=== PATIENT | male | born 1980 | race Caucasian/White ===

== ENCOUNTER 2016-10-03 19:34 | Emergency (ER) | payer MEDICARE, OTHER ==
[2016-10-03 19:40] VITALS: BP 139/82; PULSE 84; RESP 18; TEMP 98
--- NOTE | 2016-10-03 20:05 | ED ---
General Adult HPI - General Chief complaint: Head Injury Stated complaint: Tree fell /Head Injury Time Seen by Provider: 10/03/16 19:45 Source: patient, RN notes reviewed Mode of arrival: ambulatory Limitations: no limitations - History of Present Illness Initial comments: Chief complaint and history of present illness a 35-year-old male reports today is helping a friend take a tree down. Limb fell hitting on the top of the head. He said he felt [place] did not get knocked out or knocked down. Nausea but no vomiting. Complains discomfort to the top of his head and right side of his neck. The patient had a [place] collar placed and came to the emergency room. - Related Data Home Medications Medication Instructions Recorded Confirmed Nebivolol [Bystolic] 5 mg PO QAM 05/12/15 10/03/16 Fluticasone/Vilanterol [Breo 1 inhalation PO QAM 08/13/15 10/03/16 Ellipta 100-25 Mcg Iinhaler] HYDROcodone/APAP 10-325MG [[place] 1 tab PO TID PRN 08/13/15 10/03/16 10-325] Ibuprofen [Motrin] 800 mg PO DIRECTED PRN 08/13/15 10/03/16 Topiramate 50 mg PO DAILY 08/13/15 10/03/16 Previous Rx's Medication Instructions Recorded Orphenadrine [Norflex] 100 mg PO Q12H #10 tablet.er 10/03/16 methylPREDNISolone Dose Pack 4 mg PO DIRECTED #21 package 10/03/16 [Medrol Dose Pack] Allergies Allergy/AdvReac Type Severity Reaction Status Date / Time No Known Allergies Allergy Verified 10/03/16 19:40 Review of Systems ROS Statement: Those systems with pertinent positive or pertinent negative responses have been documented in the HPI. Review of systems. Mild headache and discomfort to the right side of the neck. No change in visual acuity no chest pain shows breath GI/ problems no neuro deficits. All systems are reviewed. Past medical problems significant for chronic back pain for which she takes [place]. He also has a history of hypertension. The patient's surgeries include appendectomy and gallbladder as well as surgery tendon of his big toe left side. Family history significant for grandparents with cancer of unknown type. Patient reports that his father has diabetes mellitus. Patient denies any ALLERGIES, he does smoke, was strongly encouraged to stop. He uses alcohol socially. ROS Other: All systems not noted in ROS Statement are negative. Past Medical History Additional Past Medical History / Comment(s): back pain History of Any Multi-Drug Resistant Organisms: None Reported Past Surgical History: No Surgical Hx Reported Past Psychological History: No Psychological Hx Reported Smoking Status: Current every day smoker Past Alcohol Use History: Occasional Past Drug Use History: None Reported General Exam - General Exam Comments Initial Comments: General: The patient is awake and alert, complains of pain to the top of his head were limb hit him. Also complains neck discomfort. Vital signs show temperature 98.0 pulse 84 respiratory rate 18 pulse ox 97% room air blood pressure 139/82. Elevated systolic noted. The patient is comfortable Eye: Pupils are equal, round and reactive to light, extra-ocular movements are intact ; there is normal conjunctiva bilaterally. No signs of icterus. Ears, nose, mouth and throat: There are moist mucous membranes and no oral lesions. Neck: Patient was placed in a [place] collar upon arrival to emergency room. He does have discomfort to the middle of his neck he does report there is some discomfort that radiates down to the right shoulder. The tree did not hit his right shoulder. He does have a small bruise on the top of his head. Cardiovascular: There is a regular rate and rhythm. No murmur, rub or gallop is appreciated. Respiratory: Lungs are clear to auscultation, respirations are non-labored, breath sounds are equal. No wheezes, stridor, rales, or rhonchi. Gastrointestinal: Soft, non-distended, non-tender abdomen without masses or organomegaly noted. There is no rebound or guarding present. No CVA tenderness. Bowel sounds are unremarkable. Back: There is no tenderness to palpation in the midline. There is no obvious deformity. No rashes noted. Musculoskeletal: Mild discomfort to the right side of his neck going into the right shoulder. Full range of motion. Neurovascular status to the hand on the right side and left side intact. Neurological: CN II-XII intact, There are no obvious motor or sensory deficits. Coordination appears grossly intact. Speech is normal. No focal or lateralizing findings. No drift noted on exam neuro exam Skin: Skin is warm and dry and no rashes or lesions are noted. Limitations: no limitations Course Vital Signs 10/03/16 19:38 Temperature 98.0 F Pulse Rate 84 Respiratory 18 Rate Blood Pressure 139/82 O2 Sat by Pulse 97 Oximetry Medical Decision Making - Medical Decision Making Medical decision making; patient had a CAT scan of the brain and cervical spine ; radiologist final impression is normal CT of the brain, negative CT of the cervical spine. As read by Dr. Palmer At this time the patient be placed on a Medrol Dosepak for muscle relaxation, advised to continue with his pain medication and ibuprofen as needed. As well as muscle relaxant. Advised to follow-up with family physician. Use ice to any areas that are uncomfortable for the next 24 hours and then warm compresses after that. Was advised to report any numbness tingling changes to his family doctor. He may need further evaluation such as no MRI if he develops disc type problems. Disposition Clinical Impression: Closed head injury, Contusion of scalp, Cervical strain, acute Disposition: HOME SELF-CARE Condition: Stable Instructions: Concussion (ED), Cervical Strain (ED) Additional Instructions: Apply ice to area discomfort tonight and then heat tomorrow. Use medications provided for muscle relaxation and pain management. Follow-up with your family doctor. Prescriptions: Orphenadrine [Norflex] 100 mg PO Q12H #10 tablet.er methylPREDNISolone Dose Pack [Medrol Dose Pack] 4 mg PO DIRECTED #21 package Time of Disposition: 20:51
--- NOTE | 2016-10-03 20:31 | CT ---
EXAMINATION TYPE: CT brain atilioine wo con DATE OF EXAM: 10/03/2016 8:22 PM COMPARISON: 03/16/2015 CT brain HISTORY: Superior injury today without loss of consciousness. CT DLP: 1517.8 mGycm Automated exposure control for dose reduction was used. TECHNIQUE: CT scan of the head and cervical spine are performed without contrast. FINDINGS: The ventricles and sulci appear normal. There is no mass effect nor midline shift. There is no sign of intracranial hemorrhage. Calvarium is intact. Cervical vertebra have normal spacing and alignment. Posterior elements are intact. Facet joints are intact. Skull base is intact. There is no sign of a fracture. IMPRESSION: Normal CT scan of the brain. Negative CT scan of the cervical spine.
[2016-10-03] MEDS ORDERED: predniSONE 20 MG TAB PO STA (20:43)
== END 2016-10-03 20:57 | disposition home or self-care (01) ==
LOC: EC 19:34
DX: S16.1XXA Strain of muscle, fascia and tendon at neck level, initial encounter (principal); S00.03XA Contusion of scalp, initial encounter; F17.200 Nicotine dependence, unspecified, uncomplicated; Z79.899 Other long term (current) drug therapy; Z79.51 Long term (current) use of inhaled steroids; W20.8XXA Other cause of strike by thrown, projected or falling object, initial encounter; Y93.89 Activity, other specified
CPT/HCPCS: 99283; 72125; 70450; J7512

== ENCOUNTER → 2017-11-12 | Outpatient (CLI) | payer MEDICARE, OTHER ==
--- NOTE | 2017-11-13 08:53 | MR ---
EXAMINATION TYPE: MR lumbar spine wo con DATE OF EXAM: 11/12/2017 COMPARISON: 11/15/2009 images. Report is unavailable. HISTORY: Lumbar pain, Disc degeneration TECHNIQUE: Multiplanar, multisequence images of the lumbar spine were acquired. The patient did not complete lavell or laboratory workup and therefore requested to complete the examination without contrast. FINDINGS: The lumbar bodies maintain normal vertebral body height and alignment. Bone marrow signal i s within normal limits. Multilevel disc desiccation is seen. Conus medullaris is unremarkable termina ting at T12-L1. L1-L2: Normal disc appearance without desiccation. No herniation, protrusion or disc bulging. No ca nal stenosis is present. Foramina are patent bilaterally. L2-L3: There is a very small broad-based disc bulge is there is flattening in the usual disc concavit y. No significant spinal canal stenosis or neural foraminal narrowing. L3-L4: There is a small broad-based disc bulge without spinal canal stenosis or neural foraminal narr owing. Minimal facet arthropathy is seen at this level. L4-L5: There is a very small central disc herniation and annular tear superimposed upon a broad-based disc bulge. Facet arthropathy is very mild. No significant spinal canal stenosis or neural foraminal narrowing. L5-S1: There is a small broad-based disc bulge without spinal canal stenosis or neural foraminal narr owing. Minimal facet arthropathy. IMPRESSION: 1. Very small central disc herniation with annular tear at L4-L5 without spinal canal stenosis or rand ral foraminal narrowing. 2. Degenerative disc disease from L2 through S1 without spinal canal stenosis.
== END | disposition home or self-care (01) ==
LOC: RADMRIMAIN 11:19
PROVIDERS: ATTEND Family Medicine
DX: M51.26 Other intervertebral disc displacement, lumbar region (principal); M51.37 Other intervertebral disc degeneration, lumbosacral region
CPT/HCPCS: 72148

== ENCOUNTER 2018-01-08 12:17 | Emergency (ER) | payer MEDICARE, OTHER ==
[2018-01-08] MEDS ORDERED: ONDANSETRON 4 MG/2 ML VIAL IVP STA (13:55)
[2018-01-08] MEDS ORDERED: PANTOPRAZOLE 40 MG/10 ML VIAL IVP STA (13:55)
[2018-01-08] MEDS ORDERED: SODIUM CHLORIDE 0.9% 1,000 ML IV STA (13:55)
[2018-01-08] MEDS ORDERED: KETOROLAC 30 MG/ML 1 ML VIAL IVP STA (13:55)
[2018-01-08] MEDS ORDERED: MAG HYDROX/AL HYDROX/SIMETH 30 ML, HYOSCYAMINE ELIXIR 10 ML, CIMETIDINE HCL 300 MG, LID... PO STA ×4 (13:56)
[2018-01-08 14:12] LABS: Basophils % (A) 0 %; Eosinophils # (A) 0.2 k/uL (0-0.7); Eosinophils % (A) 3 %; HCT 50.2 % (39.0-53.0); HGB 17.2 gm/dL (13.0-17.5); Lymphocytes # (A) 1.5 k/uL (1.0-4.8); Lymphocytes % (A) 19 %; MCH 31.1 pg (25.0-35.0); MCHC 34.3 g/dL (31.0-37.0); MCV 90.6 fL (80.0-100.0); Mean Platelet Volume 7.2; Monocytes # (A) 0.4 k/uL (0-1.0); Monocytes % (A) 5 %; Neutrophils # (A) 5.8 k/uL (1.3-7.7); Neutrophils % (A) 72 %; Platelet Count 228 k/uL (150-450); RBC 5.55 m/uL (4.30-5.90); RDW 13.2 % (11.5-15.5); WBC 8.1 k/uL (3.8-10.6)
[2018-01-08 14:21] LABS: INR 1.1 (<1.2); Partial Thromboplastin Time 25.7 sec (22.0-30.0); Prothrombin Time 10.3 sec (9.0-12.0)
[2018-01-08 14:22] LABS: ALT 36 U/L (21-72); AST 31 U/L (17-59); Albumin 4.2 g/dL (3.5-5.0); Alkaline Phosphatase 54 U/L (38-126); Amylase 48 U/L (30-110); Anion Gap 11 mmol/L; Blood Urea Nitrogen 14 mg/dL (9-20); Calcium 9.6 mg/dL (8.4-10.2); Carbon Dioxide 23 mmol/L (22-30); Chloride 106 mmol/L (98-107); Glucose 89 mg/dL (74-99); Lipase 68 U/L (23-300); Potassium 4.4 mmol/L (3.5-5.1); Sodium 140 mmol/L (137-145); Total Protein 6.8 g/dL (6.3-8.2)
--- NOTE | 2018-01-08 14:22 | ED ---
Chest Pain HPI <Ayo Daniels - Last Filed: 01/08/18 16:41> - General Source: patient, RN notes reviewed, old records reviewed Mode of arrival: wheelchair Limitations: no limitations <Anita Trinidad - Last Filed: 01/08/18 16:51> - General Chief Complaint: Chest Pain Stated Complaint: Chest pain Time Seen by Provider: 01/08/18 13:24 - History of Present Illness Initial Comments: 37-year-old male chief complaint chest pain this morning. He states it seems to be also causing some epigastric abdominal pain. This pain stopped and then recurred again 9 AM. Patient has no cardiac history. Does have history of hypertension is a smoker. Denies any fever or chills. Also reports a sore throat. She reports pain with taking a deep breath. (Anita Trinidad) - Related Data Home Medications Medication Instructions Recorded Confirmed Nebivolol [Bystolic] 5 mg PO QAM 05/12/15 01/08/18 Fluticasone/Vilanterol [Breo 1 puff INHALATION RT-DAILY 08/13/15 01/08/18 Ellipta 100-25 Mcg Iinhaler] HYDROcodone/APAP 10-325MG [[place] 1 tab PO TID PRN 08/13/15 01/08/18 10-325] Montelukast [Singulair] 10 mg PO DAILY 01/08/18 01/08/18 Previous Rx's Medication Instructions Recorded methylPREDNISolone Dose Pack 4 mg PO DIRECTED #21 package 01/08/18 [Medrol Dose Pack] Allergies Allergy/AdvReac Type Severity Reaction Status Date / Time No Known Allergies Allergy Verified 01/08/18 13:47 Review of Systems ROS Other: All systems not noted in ROS Statement are negative. <Ayo Daniels - Last Filed: 01/08/18 16:41> ROS Other: All systems not noted in ROS Statement are negative. <Anita Trinidad - Last Filed: 01/08/18 16:51> ROS Statement: Those systems with pertinent positive or pertinent negative responses have been documented in the HPI. EKG Findings - EKG Comments: EKG Findings:: EKG shows normal sinus rhythm with sinus arrhythmia. Left axis deviation. Ventricular rate 60 beats were improved. Vitals 140 ms. QRS duration is 96 most seconds. QTc is 368/391 ms. <Anita Trinidad - Last Filed: 01/08/18 16:51> Past Medical History Past Medical History: Hypertension Additional Past Medical History / Comment(s): back pain History of Any Multi-Drug Resistant Organisms: None Reported Past Surgical History: Appendectomy, Cholecystectomy, Hernia Repair Additional Past Surgical History / Comment(s): left great toe Past Psychological History: No Psychological Hx Reported Smoking Status: Current every day smoker Past Alcohol Use History: Occasional Past Drug Use History: None Reported <Anita Trinidad - Last Filed: 01/08/18 16:51> General Exam <Ayo Daniels - Last Filed: 01/08/18 16:41> Limitations: no limitations Head exam: Present: atraumatic, normocephalic, normal inspection Eye exam: Present: normal appearance, PERRL, EOMI. Absent: scleral icterus, conjunctival injection, periorbital swelling ENT exam: Present: normal exam, mucous membranes moist Neck exam: Present: normal inspection. Absent: tenderness, meningismus, lymphadenopathy Respiratory exam: Present: normal lung sounds bilaterally. Absent: respiratory distress, wheezes, rales, rhonchi, stridor Cardiovascular Exam: Present: regular rate, normal rhythm, normal heart sounds. Absent: systolic murmur, diastolic murmur, rubs, gallop, clicks GI/Abdominal exam: Present: soft, normal bowel sounds. Absent: distended, tenderness, guarding, rebound, rigid Extremities exam: Present: normal inspection, full ROM, normal capillary refill. Absent: tenderness, pedal edema, joint swelling, calf tenderness Back exam: Present: normal inspection Neurological exam: Present: alert, oriented X3, CN II-XII intact Psychiatric exam: Present: normal affect, normal mood <AmosAnita - Last Filed: 01/08/18 16:51> - General Exam Comments Initial Comments: Patient 37-year-old male. Alert and oriented. No significant distress. 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 This happened several 6 months ago. He did see his family doctor afterwards. Today 's EKG was normal. Labs normal. The patient reports that with a deep breath he can reproduce the pain. Lungs are clear to auscultation the patient denies any injury. We did discuss costochondritis, pleuritic pain. And cardiac issues. The plan the patient is comfortable going home following up with family physician. If the pain were to persist is to return emergency room. He does report that the initial pain was at 3 AM. 12 hours ago on by since the patient had his cardiac panel and troponin drawn. Troponin is normal. The patient replaced on Medrol Dosepak. Advised to use ibuprofen. advised return emergency room if there are any changes. Dr. Daniels (Ayo Daniels) Nonspecific abdomen. Correlate for ileus or enteritis. Chest x-rays negative for any acute process. (Anita Trinidad) Disposition <Ayo Daniels - Last Filed: 01/08/18 16:41> Is patient prescribed a controlled substance at d/c from ED?: No When asked, does pt state using other controlled substances?: No If prescribed controlled substance>3 days was MAPS reviewed?: No If opioid is for acute pain is fill amount 7 days or less?: No If Rx opioid, was Start Talking consent form obtained?: No Time of Disposition: 16:50 <Anita Trinidad - Last Filed: 01/08/18 16:51> Clinical Impression: Chest pain Disposition: HOME SELF-CARE Condition: Good Instructions: Costochondritis (ED), Chest Pain (ED) Additional Instructions: He should take Motrin and use the steroids as prescribed for the chest pain. Have close up with primary care provider. Return to emergency department if any alarming signs or symptoms occur. Prescriptions: methylPREDNISolone Dose Pack [Medrol Dose Pack] 4 mg PO DIRECTED #21 package Referrals: Stefano Cano MD [Primary Care Provider] - 1-2 days
--- NOTE | 2018-01-08 14:30 | XR ---
EXAMINATION TYPE: XR chest 2V DATE OF EXAM: 01/08/2018 COMPARISON: 11/01/2011 TECHNIQUE: PA and lateral views submitted. HISTORY: Chest pain FINDINGS: The lungs are clear and there is no pneumothorax, pleural effusion, or focal pneumonia. Hypertrophic change of the spine. No overt failure. Biapical pleural thickening. IMPRESSION: 1. No acute process.
[2018-01-08 14:31] LABS: Creatine Kinase 218 U/L (55-170)
--- NOTE | 2018-01-08 14:31 | XR ---
EXAMINATION TYPE: XR KUB DATE OF EXAM: 01/08/2018 COMPARISON: NONE HISTORY: Pain TECHNIQUE: One view abdominal series FINDINGS: The osseous structures are intact. The bowel gas pattern is nonspecific. Lung bases are clear. Surg ical clips in the abdomen. There is air throughout small bowel loops in a nonspecific pattern. Curvat ure the spine noted. IMPRESSION: 1. Nonspecific abdomen. Correlate for an ileus or enteritis.
[2018-01-08 14:44] LABS: Troponin I <0.012 ng/mL (0.000-0.034)
[2018-01-08 14:46] LABS: Creatine Kinase MB 2.8 ng/mL (0.0-2.4)
[2018-01-08 16:04] VITALS: RESP 16
[2018-01-08 16:53] LABS: Amorphous Sediment,Urine Rare /hpf; Appearance,Urine Clear (Clear); Bilirubin,Urine Negative (Negative); Blood,Urine Negative (Negative); Color,Urine Yellow; Glucose,Urine (UA) Negative (Negative); Ketones,Urine Negative (Negative); Leukocyte Esterase,Urine Small (Negative); Mucus,Urine Occasional /hpf; Nitrite,Urine Negative (Negative); PH, Urine 6.5 (5.0-8.0); Protein,Urine Negative (Negative); RBC,Urine 1 /hpf (0-5); Specific Gravity,Urine 1.015 (1.001-1.035); Urobilinogen,Urine <2.0 mg/dL (<2.0); WBC,Urine 1 /hpf (0-5)
[2018-01-08 17:00] VITALS: BP 115/78; PULSE 62; TEMP 97.9
== END 2018-01-08 17:00 | disposition home or self-care (01) ==
LOC: EC 12:17
DX: R07.81 Pleurodynia (principal); R10.13 Epigastric pain; J02.9 Acute pharyngitis, unspecified; I10 Essential (primary) hypertension; F17.200 Nicotine dependence, unspecified, uncomplicated; Z79.51 Long term (current) use of inhaled steroids; Z79.899 Other long term (current) drug therapy
CPT/HCPCS: 36415; 93005; 85379; 80053; 82150; 82550; 82553; 83690; 84484; 85025; 85610; 85730; 81001; 87081; 87430; 71046; 74018; 99285; 96374; 96375 ×2; 96361; J2405; J1885; C9113

== ENCOUNTER → 2018-04-08 | Outpatient (CLI) | payer MEDICARE, OTHER ==
[2018-04-08 14:31] LABS: Basophils % (A) 0 %; Eosinophils # (A) 0.2 k/uL (0-0.7); Eosinophils % (A) 2 %; HCT 50.6 % (39.0-53.0); HGB 16.7 gm/dL (13.0-17.5); Lymphocytes # (A) 1.7 k/uL (1.0-4.8); Lymphocytes % (A) 16 %; MCH 31.6 pg (25.0-35.0); MCHC 33.1 g/dL (31.0-37.0); MCV 95.6 fL (80.0-100.0); Mean Platelet Volume 7.2; Monocytes # (A) 0.5 k/uL (0-1.0); Monocytes % (A) 5 %; Neutrophils # (A) 7.9 k/uL (1.3-7.7); Neutrophils % (A) 77 %; Platelet Count 259 k/uL (150-450); RBC 5.29 m/uL (4.30-5.90); RDW 13.1 % (11.5-15.5); WBC 10.3 k/uL (3.8-10.6)
[2018-04-08 14:56] LABS: C Reactive Protein <5.0 mg/L (<10.0); Uric Acid 5.1 mg/dL (3.5-8.5)
[2018-04-08 15:29] LABS: Erythrocyte Sedimentation Rate 2 mm/hr (0-15)
[2018-04-08 20:43] LABS: Cyclic Citrullinated Pep IgG NEGATIVE (NEGATIVE)
== END ==
LOC: LABWHC1 13:37
PROVIDERS: ATTEND Podiatrist Foot & Ankle Surgery
DX: B99.9 Unspecified infectious disease (principal); M19.90 Unspecified osteoarthritis, unspecified site
CPT/HCPCS: 36415; 84550; 85025; 85652; 86038; 86140; 86200

== ENCOUNTER 2018-07-09 20:03 | Emergency (ER) | payer MEDICARE, OTHER ==
[2018-07-09] MEDS ORDERED: KETOROLAC 30 MG/ML 1 ML VIAL IVP STA (20:38)
--- NOTE | 2018-07-09 20:39 | ED ---
General Adult HPI - General Chief complaint: Chest Pain Stated complaint: chest pain Source: patient Mode of arrival: ambulatory Limitations: no limitations - History of Present Illness Initial comments: Dictation was produced using [employer] dictation software. please excuse any grammatical, word or spelling errors. Chief Complaint: 37-year-old male past medical history of hypertension and COPD History of Present Illness: Is as her chest pain. Patient reports that his pain started today. He reports that is sharp and located to the left lateral thorax. Reports that is worse with deep inspiration and abduction of his left upper extremity. He also does feel some symptoms when he bends forward. Patient denies any history of cardiac disease. She does have some risk factors including tobacco use and hypertension. Patient denies any cough, fever or chills. The lower extremity symptoms or history of pulmonary embolus. The ROS documented in this emergency department record has been reviewed and confirmed by me. Those systems with pertinent positive or negative responses have been documented in the HPI. All other systems are other negative and/or noncontributory. - Related Data Home Medications Medication Instructions Recorded Confirmed Nebivolol [Bystolic] 5 mg PO QAM 05/12/15 07/09/18 Fluticasone/Vilanterol [[place] 1 puff INHALATION RT-DAILY 08/13/15 07/09/18 Ellipta 100-25 Mcg Iinhaler] HYDROcodone/APAP 10-325MG [[place] 1 tab PO TID PRN 08/13/15 07/09/18 10-325] Ibuprofen [Motrin] 800 mg PO DAILY PRN 07/09/18 07/09/18 Allergies Allergy/AdvReac Type Severity Reaction Status Date / Time No Known Allergies Allergy Verified 07/09/18 20:27 Review of Systems ROS Statement: Those systems with pertinent positive or pertinent negative responses have been documented in the HPI. ROS Other: All systems not noted in ROS Statement are negative. Past Medical History Past Medical History: Hypertension Additional Past Medical History / Comment(s): back pain History of Any Multi-Drug Resistant Organisms: None Reported Past Surgical History: Appendectomy, Cholecystectomy, Hernia Repair Additional Past Surgical History / Comment(s): left great toe Past Psychological History: No Psychological Hx Reported Smoking Status: Current every day smoker Past Alcohol Use History: Occasional Past Drug Use History: None Reported General Exam - General Exam Comments Initial Comments: PHYSICAL EXAM: General Impression: Alert and oriented x3, not in acute distress HEENT: Normocephalic atraumatic, extra-ocular movements intact, pupils equal and reactive to light bilaterally, mucous membranes moist. Cardiovascular: Heart regular rate and rhythm, S1&S2 audible, no murmurs, rubs or gallops Chest: Lungs clear to auscultation bilaterally, no rhonchi, no wheeze, no rales , reproducible chest pain with manipulation of left upper extremity Abdomen: Bowel sounds present, abdomen soft, non-tender, non-distended, no organomegaly Musculoskeletal: Pulses present and equal in all extremities, no peripheral edema Motor: Power 5/5 bilaterally, no focal deficits noted Neurological: CN II-XII grossly intact, no focal motor or sensory deficits noted Skin: Intact with no visualized rashes Psych: Normal affect and mood Limitations: no limitations Course Vital Signs 07/09/18 20:04 Temperature 97.9 F Pulse Rate 71 Respiratory 16 Rate Blood Pressure 132/82 O2 Sat by Pulse 99 Oximetry Medical Decision Making - Medical Decision Making ED course: 37-year-old male presents with atypical chest pain. Vital signs upon arrival are within acceptable limits. EKGs benign. Chest x-rays obtained showing no acute processes. She does not have any high-risk features and his clinical presentation. Given IV Toradol. Patient be discharged. Told to take [id number] analgesics for his pain symptoms. Patient understandable agreeable to plan. return any worsening condition. Otherwise advised follow-up with primary care physician upon discharge. EKG Interpretation: A 12 lead EKG was obtained. It was interpreted by myself and attending physician. There is a P wave before every QRS complex. Rate is no sinus rhythm, CT interval 144, heart rate of 64, QRS 94, QTC 33. Rhythm is [default value]. QT is not prolonged. No ST segment depression or elevation. . Overall, this EKG is unremarkable Disposition Clinical Impression: Strain of chest wall Disposition: HOME SELF-CARE Condition: Good Instructions: Chest Pain (ED) Is patient prescribed a controlled substance at d/c from ED?: No Referrals: Stefano Cano MD [Primary Care Provider] - 1-2 days Time of Disposition: 21:05
--- NOTE | 2018-07-09 20:46 | XR ---
EXAMINATION TYPE: XR chest 2V DATE OF EXAM: 07/09/2018 COMPARISON: 01/08/2018 HISTORY: Chest pain TECHNIQUE: Frontal and lateral views of the chest are obtained. FINDINGS: Heart and mediastinum are normal. Lungs are clear. Diaphragm is normal. There are chest le ads. Bony thorax appears normal. IMPRESSION: Normal chest. No change.
[2018-07-09 21:22] VITALS: BP 127/78; PULSE 66; RESP 18; TEMP 98.1
== END 2018-07-09 21:20 | disposition home or self-care (01) ==
LOC: EC 20:03
DX: S29.001A Unspecified injury of muscle and tendon of front wall of thorax, initial encounter (principal); I10 Essential (primary) hypertension; J44.9 Chronic obstructive pulmonary disease, unspecified; F17.200 Nicotine dependence, unspecified, uncomplicated; Z79.51 Long term (current) use of inhaled steroids; Z79.899 Other long term (current) drug therapy; X58.XXXA Exposure to other specified factors, initial encounter
CPT/HCPCS: 99283; 96374; 93005; 71046; J1885

== ENCOUNTER 2019-02-14 08:58 | Inpatient (IN) | payer MEDICARE, OTHER ==
[2019-02-14] MEDS ORDERED: SODIUM CHLORIDE 0.9% 1,000 ML IV STA (09:21)
--- NOTE | 2019-02-14 09:42 | ED ---
Abdominal Pain HPI - General Chief Complaint: Abdominal Pain Stated Complaint: abdominal pain Time Seen by Provider: 02/14/19 09:21 Source: patient, RN notes reviewed Mode of arrival: ambulatory Limitations: no limitations - History of Present Illness Initial Comments: This a 38-year-old male presents emergency Department chief complaint abdominal pain. Patient states he's had worsening abdominal pain last few days. Patient states his appointment with unbearable. Patient states that he has had chronic abdominal issues in which she is scheduled for colonoscopy by Dr. Lyon. Patient did feel years ago he had a hiatal hernia repair by Dr. Lyon. Patient states that he did have some recent diarrhea states it was green in nature. Denies any hematochezia. Patient denies any hematemesis coffee-ground emesis no current nausea vomiting. Patient states that certain foods to make the symptoms worse. Patient went of diffuse abdominal burning. Patient was given Bentyl by primary care physician with no improvement of symptoms. - Related Data Home Medications Medication Instructions Recorded Confirmed Nebivolol [Bystolic] 5 mg PO QAM 05/12/15 02/14/19 Fluticasone/Vilanterol [Breo 1 puff INHALATION RT-DAILY 08/13/15 02/14/19 Ellipta 100-25 Mcg Iinhaler] HYDROcodone/APAP 10-325MG [[place] 1 tab PO TID PRN 08/13/15 02/14/19 10-325] Ibuprofen [Motrin] 800 mg PO DAILY PRN 07/09/18 02/14/19 Dicyclomine HCl 10 mg PO TID 02/14/19 02/14/19 Allergies Allergy/AdvReac Type Severity Reaction Status Date / Time No Known Allergies Allergy Verified 02/14/19 09:20 Review of Systems ROS Statement: Those systems with pertinent positive or pertinent negative responses have been documented in the HPI. ROS Other: All systems not noted in ROS Statement are negative. Past Medical History Past Medical History: Hypertension Additional Past Medical History / Comment(s): back pain History of Any Multi-Drug Resistant Organisms: None Reported Past Surgical History: Appendectomy, Cholecystectomy, Hernia Repair Additional Past Surgical History / Comment(s): left great toe Past Psychological History: No Psychological Hx Reported Smoking Status: Current every day smoker Past Alcohol Use History: Occasional Past Drug Use History: None Reported General Exam Limitations: no limitations General appearance: alert, in no apparent distress Head exam: Present: atraumatic, normocephalic, normal inspection Eye exam: Present: normal appearance, PERRL, EOMI. Absent: scleral icterus, conjunctival injection, periorbital swelling ENT exam: Present: normal exam, normal oropharynx, mucous membranes moist Neck exam: Present: normal inspection, full ROM. Absent: tenderness, meningismus, lymphadenopathy Respiratory exam: Present: normal lung sounds bilaterally. Absent: respiratory distress, wheezes, rales, rhonchi, stridor Cardiovascular Exam: Present: regular rate, normal rhythm, normal heart sounds. Absent: systolic murmur, diastolic murmur, rubs, gallop, clicks GI/Abdominal exam: Present: soft, tenderness (Mild to moderate diffuse abdominal tenderness), normal bowel sounds. Absent: distended, guarding, rebound, rigid Back exam: Absent: CVA tenderness (R), CVA tenderness (L) Skin exam: Present: warm, dry, intact, normal color. Absent: rash Course Vital Signs 02/14/19 09:09 Temperature 98 F Pulse Rate 61 Respiratory 18 Rate Blood Pressure 131/88 O2 Sat by Pulse 98 Oximetry Medical Decision Making - Medical Decision Making 2-year-old male presented for abdominal pain. Patient had worsening pain last couple days. CT shows evidence of transient intussusception versus mass. Patient will be admitted to medicine with consult to surgery. Patient has seen Dr. Anders in the past. - Lab Data Result diagrams: 02/14/19 10:00 02/14/19 10:00 Lab Results 02/14/19 02/14/19 02/14/19 Range/Units 10:00 10:00 10:00 WBC 7.1 (3.8-10.6) k/uL RBC 5.26 (4.30-5.90) m/uL Hgb 16.5 (13.0-17.5) gm/dL Hct 49.4 (39.0-53.0) % MCV 93.9 (80.0-100.0) fL MCH 31.5 (25.0-35.0) pg MCHC 33.5 (31.0-37.0) g/dL RDW 13.2 (11.5-15.5) % Plt Count 218 (150-450) k/uL Neutrophils % 66 % Lymphocytes % 22 % Monocytes % 6 % Eosinophils % 4 % Basophils % 0 % Neutrophils # 4.7 (1.3-7.7) k/uL Lymphocytes # 1.5 (1.0-4.8) k/uL Monocytes # 0.4 (0-1.0) k/uL Eosinophils # 0.3 (0-0.7) k/uL Basophils # 0.0 (0-0.2) k/uL Sodium 139 (137-145) mmol/L Potassium 4.4 (3.5-5.1) mmol/L Chloride 107 (98-107) mmol/L Carbon Dioxide 25 (22-30) mmol/L Anion Gap 7 mmol/L BUN 16 (9-20) mg/dL Creatinine 0.93 (0.66-1.25) mg/dL Est GFR (CKD-EPI)AfAm >90 (>60 ml/min/1.73 sqM) Est GFR (CKD-EPI)NonAf >90 (>60 ml/min/1.73 sqM) Glucose 94 (74-99) mg/dL Calcium 9.3 (8.4-10.2) mg/dL Total Bilirubin 0.4 (0.2-1.3) mg/dL AST 15 L (17-59) U/L ALT 22 (21-72) U/L Alkaline Phosphatase 61 (38-126) U/L Total Protein 6.8 (6.3-8.2) g/dL Albumin 4.2 (3.5-5.0) g/dL Amylase 60 (30-110) U/L Lipase 119 (23-300) U/L Urine Color Yellow Urine Appearance Clear (Clear) Urine pH 6.0 (5.0-8.0) Ur Specific [place] 1.020 (1.001-1.035) Urine Protein Negative (Negative) Urine Glucose (UA) Negative (Negative) Urine Ketones Negative (Negative) Urine Blood Negative (Negative) Urine Nitrite Negative (Negative) Urine Bilirubin Negative (Negative) Urine Urobilinogen <2.0 (<2.0) mg/dL Ur Leukocyte Esterase Small H (Negative) Urine RBC 1 (0-5) /hpf Urine WBC 1 (0-5) /hpf Urine Mucus Rare H (None) /hpf Disposition Clinical Impression: Abdominal pain, Intussusception, Intestinal mass Disposition: ADMITTED IP TO THIS [facility] Condition: Fair Referrals: Stefano Cano MD [Primary Care Provider] - 1-2 days
[2019-02-14 10:27] LABS: Basophils % (A) 0 %; Eosinophils # (A) 0.3 k/uL (0-0.7); Eosinophils % (A) 4 %; HCT 49.4 % (39.0-53.0); HGB 16.5 gm/dL (13.0-17.5); Lymphocytes # (A) 1.5 k/uL (1.0-4.8); Lymphocytes % (A) 22 %; MCH 31.5 pg (25.0-35.0); MCHC 33.5 g/dL (31.0-37.0); MCV 93.9 fL (80.0-100.0); Mean Platelet Volume 7.3; Monocytes # (A) 0.4 k/uL (0-1.0); Monocytes % (A) 6 %; Neutrophils # (A) 4.7 k/uL (1.3-7.7); Neutrophils % (A) 66 %; Platelet Count 218 k/uL (150-450); RBC 5.26 m/uL (4.30-5.90); RDW 13.2 % (11.5-15.5); WBC 7.1 k/uL (3.8-10.6)
[2019-02-14 10:43] LABS: ALT 22 U/L (21-72); AST 15 U/L (17-59); African American GFR (CKD) >90 (>60 ml/min/1.73 sqM); Albumin 4.2 g/dL (3.5-5.0); Alkaline Phosphatase 61 U/L (38-126); Amylase 60 U/L (30-110); Anion Gap 7 mmol/L; Blood Urea Nitrogen 16 mg/dL (9-20); Calcium 9.3 mg/dL (8.4-10.2); Carbon Dioxide 25 mmol/L (22-30); Chloride 107 mmol/L (98-107); Glucose 94 mg/dL (74-99); Potassium 4.4 mmol/L (3.5-5.1); Sodium 139 mmol/L (137-145); Total Bilirubin 0.4 mg/dL (0.2-1.3); Total Protein 6.8 g/dL (6.3-8.2)
--- NOTE | 2019-02-14 11:03 | CT ---
EXAMINATION TYPE: CT abdomen pelvis w con DATE OF EXAM: 02/14/2019 COMPARISON: 10/11/2015 HISTORY: 38-year-old male with abdominal pain TECHNIQUE: Contiguous axial scanning of the abdomen and pelvis following administration of 100 ml Iso britni 300 IV contrast. Delayed images through the kidneys and coronal/sagittal reconstructions perform ed. CT DLP: 860.8 mGycm Automated exposure control for dose reduction was used. FINDINGS: Heart normal size without pericardial effusion. Postsurgical changes at the GE junction. Lung bases c lear without pleural effusion. Stable posterior right renal cyst measuring 1 cm. No other focal liver lesion. Portal venous system i s patent. No biliary ductal dilatation. Cholecystectomy clips. Adrenal glands, kidneys, spleen, and pancreas appear within normal limits. No dilated small bowel, free fluid, or free air. There is focal mural based thickening with shouldering involving a small bowel loop in the left midab domen, refer to axial image 41 and coronal image 29. No mesenteric or retroperitoneal lymphadenopathy. Prominent small bowel loops anteriorly in the abdomen measuring up to 2.8 cm. Fluid-filled small negrito l loops in the lower abdomen and pelvis. Appendix not discretely visualized. No secondary findings of acute appendicitis. Mild stool within the right side of the colon. No pericolonic inflammatory change. Bladder nondistended. Prostate gland measures 4.7 cm wide. No abnormal fluid collection in the pelvis or pelvic lymphadenopathy. Bones: Mild degenerative changes of the hips. No osseous destructive process. IMPRESSION: 1. FOCAL MURAL BASED SOFT TISSUE THICKENING WITH SHOULDERING INVOLVING A SMALL BOWEL LOOP IN THE LEFT MID ABDOMEN. FINDINGS MAY REPRESENT A TRANSIENT SHORT SEGMENT INTUSSUSCEPTION OR EARLY SMALL BOWEL M ASS SUCH ADENOCARCINOMA OR LYMPHOMA. THE FORMER (TRANSIENT SHORT SEGMENT INTUSSUSCEPTION) IS FAVOR ED AT THIS TIME. RECOMMEND FOLLOW-UP EVALUATION AFTER ORAL CONTRAST ADMINISTRATION IN 2-3 WEEKS. 2. SOME PROMINENT SCATTERED SMALL BOWEL LOOPS AND FLUID IN DISTAL SMALL BOWEL. CORRELATE FOR POSSIBLE ENTERITIS. NO EVIDENCE FOR BOWEL OBSTRUCTION.
[2019-02-14 11:06] LABS: Appearance,Urine Clear (Clear); Bilirubin,Urine Negative (Negative); Blood,Urine Negative (Negative); Color,Urine Yellow; Glucose,Urine (UA) Negative (Negative); Ketones,Urine Negative (Negative); Leukocyte Esterase,Urine Small (Negative); Mucus,Urine Rare /hpf; Nitrite,Urine Negative (Negative); Protein,Urine Negative (Negative); RBC,Urine 1 /hpf (0-5); Urobilinogen,Urine <2.0 mg/dL (<2.0); WBC,Urine 1 /hpf (0-5)
[2019-02-14] MEDS ORDERED: NALOXONE 0.4 MG/ML 1 ML VIAL IV PRN (12:16)
[2019-02-14] MEDS ORDERED: SODIUM CHLORIDE 0.9% 1,000 ML IV SCH (12:30)
[2019-02-14] MEDS: MORPHINE SULFATE 4 MG/ML SYRINGE IV PRN ×2 (13:22→17:52)
--- NOTE | 2019-02-14 15:50 | P.GSCN ---
History of Present Illness Consult date: 02/14/19 History of present illness: CHIEF COMPLAINT: Abdominal pain HISTORY OF PRESENT ILLNESS: The patient is a 38 year old male who presents acutely with increased abdominal pain severe 10 out of 10 of the left upper quadrant. Reports history of chronic diarrhea for several weeks. As of the last 24 hours his stools are dark to black. He had been scheduled for colonos copy in the next 1-2 weeks. Today he presents to the ER with inability to pass flatus including acute onset abdominal distention. Additional diagnostic studies were performed demonstrating small bowel mass versus acute intussusception. He denies any previous episodes of acute obstipation. His pa rents are at bedside adding additional history. He reports "it's of burning in my belly." He reports the pain is worse since his presentation to the ER. Secondary to his diagnostic studies, Gen. surgery is consulted. PAST MEDICAL HISTORY: See list. PAST SURGICAL HISTORY: See list. MEDICATIONS: See list. ALLERGIES: See list. SOCIAL HISTORY: Active tobacco abuse FAMILY HISTORY: No reports of Crohn's disease or inflammatory bowel disease REVIEW OF ORGAN SYSTEMS: CONSTITUTIONAL: No fevers or chills. EYES: Denies any trouble with vision. Wears glasses. HEENT: No difficulties with hearing. No nosebleeds. No difficulty swallowing. RESPIRATORY: Denies pneumonia. Denies any troubles with breathing or dyspnea on exertion. CARDIOVASCULAR: Denies any chest pain, palpitations, or recent heart attacks. GASTROINTESTINAL: Denies fatty food intolerance. Has change in bowel habits and gas bloat. GENITOURINARY: Denies any blood in urine or increased urinary frequency. NEUROLOGICAL: Denies any numbness or tingling along the distal extremities. No seizure disorders or headaches. MUSCULOSKELETAL: Has back pain, stiffness or joint arthritis. SKIN: No current skin cancer. No rash. PSYCHIATRIC: Past depression. No acute suicidal thoughts. ENDOCRINE: Denies current thyroid disorders. Denies any blood sugar glucose intolerance. HEME/LYMPHATIC: Denies any lumps and bumps around the neck. No recent deep venous thrombosis. ALLERGY/IMMUNOLOGY: No immunoglobulin therapy. No immune deficiencies. BREAST: Denies current breast lumps, pain or nipple discharge. PHYSICAL EXAM: VITALS: Reviewed CONSTITUTIONAL: Well developed and in no acute distress. EYES: Conjuctivae without sclera icterus. Pupils are equally round and reactive to light. Extraocular movements grossly intact. Wears glasses HEAD, EARS, NOSE, THROAT: Moist buccal mucosa. Head is atraumatic, normocepha lic. Hears conversational speech. No nasal drainage. NECK: Supple. No JV distention. No thyroidomegaly. RESPIRATORY: Non-labored respirations and equal bilateral excursions. No gross wheezes. CARDIOVASCULAR: Regular rate and rhythm. Extremities without moderate edema. Palpable 2+ radial pulses. ABDOMEN: No hepatomegaly. Soft. Mildly distended. Tender left upper quadrant. No generalized peritonitis. LYMPH: No neck lymphadenopathy. No axillary lymphadenopathy. MUSCULOSKELETAL: Gait within normal limits. Range of motion bilateral upper extremities within normal limits. Nail and fingers with good capillary refill. SKIN: Warm and well perfused with good skin turgor. NEUROLOGIC: Cranial nerves I through XII grossly intact. Sensation upper and extremities intact. No focal or lateralizing signs. PSYCH: Appropriate affect. Alert and oriented to person, place and time. Displays appropriate insight. CLINCAL LABS: Reviewed RADIOLOGY: Report reviewed without free air identified IMAGING: Independently reviewed showing mass versus intussusception at the left upper quadrant ASSESSMENT: 1. Acute small bowel obstruction due to small bowel intussusception, small bowel mass 2. Change in bowel habits with gastrointestinal bleed 3. Active tobacco abuse PLAN: 1. He presented acutely with small bowel obstruction due to intussusception with blood in stools. Recommend laparotomy with small bowel resection for small bowel mass versus intussusception for acute small bowel obstruction. 2. Inpatient hospitalization over 2 nights 3. DVT prophylaxis heparin 5000 units every 8 hours 4. Incentive spirometer every hour while awake 5. Tobacco abuse cessation counseling while perioperative recovery 6. IV fluid hydration 2 L normal saline Thank you for this kind consultation. Past Medical History Past Medical History: Hypertension Additional Past Medical History / Comment(s): back pain History of Any Multi-Drug Resistant Organisms: None Reported Past Surgical History: Appendectomy, Cholecystectomy, Hernia Repair Additional Past Surgical History / Comment(s): left great toe tendon surgery as a child Past Anesthesia/Blood Transfusion Reactions: No Reported Reaction Past Psychological History: No Psychological Hx Reported Smoking Status: Current every day smoker Past Alcohol Use History: Occasional Past Drug Use History: Marijuana - Past Family History Mother Family Medical History: No Reported History Father Family Medical History: Diabetes Mellitus Medications and Allergies Home Medications Medication Instructions Recorded Confirmed Type Nebivolol [Bystolic] 5 mg PO QAM 05/12/15 02/14/19 History Fluticasone/Vilanterol [Breo 1 puff INHALATION RT-DAILY 08/13/15 02/14/19 History Ellipta 100-25 Mcg Iinhaler] HYDROcodone/APAP 10-325MG [[place] 1 tab PO TID PRN 08/13/15 02/14/19 History 10-325] Ibuprofen [Motrin] 800 mg PO DAILY PRN 07/09/18 02/14/19 History Dicyclomine HCl 10 mg PO TID 02/14/19 02/14/19 History Allergies Allergy/AdvReac Type Severity Reaction Status Date / Time No Known Allergies Allergy Verified 02/14/19 09:20 Surgical - Exam Vital Signs Temp Pulse Resp BP Pulse Ox 98 F 61 18 131/88 98 02/14/19 09:09 02/14/19 09:09 02/14/19 09:09 02/14/19 09:09 02/14/19 09:09 Results - Labs 02/14/19 10:00 02/14/19 10:00 Abnormal Lab Results - Last 24 Hours (Table) 02/14/19 02/14/19 Range/Units 10:00 10:00 AST 15 L (17-59) U/L Ur Leukocyte Esterase Small H (Negative) Urine Mucus Rare H (None) /hpf Diabetes panel 02/14/19 Range/Units 10:00 Sodium 139 (137-145) mmol/L Potassium 4.4 (3.5-5.1) mmol/L Chloride 107 (98-107) mmol/L Carbon Dioxide 25 (22-30) mmol/L BUN 16 (9-20) mg/dL Creatinine 0.93 (0.66-1.25) mg/dL Glucose 94 (74-99) mg/dL Calcium 9.3 (8.4-10.2) mg/dL AST 15 L (17-59) U/L ALT 22 (21-72) U/L Alkaline Phosphatase 61 (38-126) U/L Total Protein 6.8 (6.3-8.2) g/dL Albumin 4.2 (3.5-5.0) g/dL Calcium panel 02/14/19 Range/Units 10:00 Calcium 9.3 (8.4-10.2) mg/dL Albumin 4.2 (3.5-5.0) g/dL Pituitary panel 02/14/19 Range/Units 10:00 Sodium 139 (137-145) mmol/L Potassium 4.4 (3.5-5.1) mmol/L Chloride 107 (98-107) mmol/L Carbon Dioxide 25 (22-30) mmol/L BUN 16 (9-20) mg/dL Creatinine 0.93 (0.66-1.25) mg/dL Glucose 94 (74-99) mg/dL Calcium 9.3 (8.4-10.2) mg/dL Adrenal panel 02/14/19 Range/Units 10:00 Sodium 139 (137-145) mmol/L Potassium 4.4 (3.5-5.1) mmol/L Chloride 107 (98-107) mmol/L Carbon Dioxide 25 (22-30) mmol/L BUN 16 (9-20) mg/dL Creatinine 0.93 (0.66-1.25) mg/dL Glucose 94 (74-99) mg/dL Calcium 9.3 (8.4-10.2) mg/dL Total Bilirubin 0.4 (0.2-1.3) mg/dL AST 15 L (17-59) U/L ALT 22 (21-72) U/L Alkaline Phosphatase 61 (38-126) U/L Total Protein 6.8 (6.3-8.2) g/dL Albumin 4.2 (3.5-5.0) g/dL - Imaging CT scan - abdomen: report reviewed, image reviewed CT scan - pelvis: report reviewed, image reviewed (Intussusception with acute small bowel obstruction) Assessment and Plan (1) Gastrointestinal bleeding, upper Current Visit: Yes Status: Acute Code(s): K92.2 - GASTROINTESTINAL HEMORRHAGE, UNSPECIFIED SNOMED Code(s): 27067010 (2) Abdominal pain Current Visit: Yes Status: Acute Code(s): R10.9 - UNSPECIFIED ABDOMINAL PAIN SNOMED Code(s): 62951447 (3) Intestinal mass Current Visit: Yes Status: Acute Code(s): K63.89 - OTHER SPECIFIED DISEASES OF INTESTINE SNOMED Code(s): 83329245 (4) Intussusception Current Visit: Yes Status: Acute Code(s): K56.1 - INTUSSUSCEPTION SNOMED Code(s): 85792188
[2019-02-14] MEDS ORDERED: HEPARIN SODIUM,PORCINE 5,000 UNIT/ML 1 ML VIAL SQ ONE (16:58)
[2019-02-14] MEDS ORDERED: IV FLUID CONTINUATION 1,000 ML IV ONE (19:01)
[2019-02-14] MEDS ORDERED: NEOSTIGMINE 1 MG/ML 10 ML VIAL ONE (19:19)
[2019-02-14] MEDS ORDERED: ePHEDrine SULFATE/0.9% NACL/PF 50 MG/5 ML SYRINGE IV ONE (19:19)
[2019-02-14] MEDS ORDERED: LIDOCAINE 1% INJ 10MG/ML (20 ML MDV) ONE (19:19)
[2019-02-14] MEDS ORDERED: MIDAZOLAM 2 MG/2 ML VIAL ONE (19:19)
[2019-02-14] MEDS ORDERED: fentaNYL (PF) 50 MCG/ML 2 ML AMP ONE (19:19)
[2019-02-14] MEDS ORDERED: ROCURONIUM BROMIDE 10 MG/ML 10 ML VIAL IV ONE (19:19)
[2019-02-14] MEDS ORDERED: PROPOFOL 10 MG/ML 20 ML VIAL IV ONE (19:19)
[2019-02-14] MEDS ORDERED: SUCCINYLCHOLINE CHLORIDE 100 MG/5 ML SYR IV ONE (19:19)
[2019-02-14] MEDS ORDERED: GLYCOPYRROLATE 0.2 MG/ML 2 ML VIAL ONE (19:19)
[2019-02-14] MEDS ORDERED: LACTATED RINGERS 1,000 ML IV ONE (19:58)
--- NOTE | 2019-02-14 20:54 | HP ---
HISTORY AND PHYSICAL CHIEF COMPLAINT: 38-year-old white male coming in with abdominal pain, worse in the past few days. He is scheduled for colonoscopy by Dr. Lyon due to worsening pain. He came to hospital. CT scan shows possible intussusception [facility] which [facility] Bentyl did not help his symptoms. HOME MEDICINES: Include Bystolic 5 mg q.a.m., Breo Ellipta 125 1 puff daily, [place] 10/325 t.i.d., Bentyl 10 a.c. t.i.d. ALLERGIES: Negative. REVIEW OF SYSTEMS: Fourteen point review of systems negative except for mentioned. PAST MEDICAL HISTORY: Surgical history: Appendectomy, cholecystectomy, hernia repair, and hypertension. SOCIAL HISTORY: Current everyday smoker. Occasional alcohol. No illicit drugs. PHYSICAL EXAM: Vital signs stable. They are reviewed. Cardiovascular S1, S2. LUNGS: Clear. ABDOMEN: Soft. Ophthalmologic: Pupils equal, round, reactive to light. GASTROINTESTINAL: He has some mild to moderate diffuse tenderness in his belly. No guarding or rebound. VITAL SIGNS: Temp 98, pulse 60, respiratory rate 16-20, blood pressure 131/88, O2 98. LABORATORY DATA: White count 7.1, hemoglobin 16.5, sodium 139, potassium 4.4, BUN is 16, creatinine 0.98. UA is negative. ASSESSMENT: 1. Intussusception. 2. Abdominal pain. 3. Intestinal mass seen on CT scan. 4. History of hypertension. He is going to go for surgery [facility] for surgery. MMODL / IJN: [id number] /
[2019-02-14] MEDS: HYDROmorphone 1 MG/ML 1 ML SYRINGE IVP ONE ×4 (21:03→21:24)
--- NOTE | 2019-02-14 21:08 | P.OP ---
Date of Procedure: 02/14/19 Description of Procedure: Date of Procedure: 02/14/19 SURGEON: LORI NUNEZ MD COMPRESSOR STATION ENGINEER: NONE. PREOPERATIVE DIAGNOSIS: 1. Intussusception with acute small bowel obstruction 2. History of gastrointestinal hemorrhage 3. History of rectal bleeding 4. Hypertensive heart disease. 5. Chronic pain syndrome. 6. Asthma 7. Irritable bowel syndrome POSTOPERATIVE DIAGNOSIS: 1. Intussusception with acute small bowel obstruction 2. History of gastrointestinal hemorrhage 3. History of rectal bleeding 4. Hypertensive heart disease. 5. Chronic pain syndrome. 6. Asthma 7. Irritable bowel syndrome 8. Internal hernia greater omentum 9. Right lower quadrant peritoneal adhesions 10. Small bowel desiccation mid jejunum and proximal ileum Procedure(s) Performed: 1. Reduction of small bowel intussusception via laparotomy 2. Open lysis of adhesions 3. Takedown of internal hernia greater omentum 4. Small bowel wedge resection Anesthesia: GETA Surgeon: Lori Nunez Estimated Blood Loss (ml): 10 Pathology: other (Small bowel mid jejunum desiccative portion) Condition: stable Disposition: floor Operative Findings: 1. 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 Internal hernia of transverse greater omentum divided 3. Intussusception of desiccated small bowel reduced 4. No evidence of peritoneal studding 5. No evidence of lymphoma of the small bowel or adenopathy 6. Minimal creeping fat of distal ileum identified 7. Peritoneal adhesion divided at right lower quadrant from previous appendectomy at risk for mechanical small bowel obstruction secondary to tethering INDICATIONS: The patient is a 38-year-old male presented acutely with intussusception including acute abdominal distention, or lines abdominal pain and history of gastrointestinal bleeding. Surgical intervention was offered with exploratory laparotomy possible bowel resection. Benefits and risks of the procedures were discussed. Informed consent was obtained. DESCRIPTION: The patient was brought to the operating room. After general induction, a Estrella catheter was placed. The abdomen was prepped and draped in standard sterile fashion. Ioban draping was also placed. Prior to incision, a timeout protocol was confirmed with surgical team regarding patient's name including procedures to be performed. Preoperative medications were confirmed. A #10 blade was used to enter along the epigastrium and extended down to the pubis. Carefully the abdomen was entered using electro- Bovie cautery. 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 Internal hernia of transverse greater omentum was found. Intussusception of desiccated small bowel was found. No evidence of peritoneal studding was found. No evidence of lymphoma of the small bowel or adenopathy was found. Minimal creeping fat of distal ileum was identified. The small bowel was inspected from the ligament of Treitz distally and intussusception of the mid jejunum was reduced. A separate internal hernia of the greater omentum was identified and divided. Peritoneal adhesion was divided at right lower quadrant from previous appendectomy at risk for mechanical small bowel obstruction secondary to tethering. At the area of intussusception including small bowel desiccation, small bowel resection was performed using 60 mm elder staple load and passed off for pathology. Hemostasis was excellent throughout the out the entire case. Blood loss was less than 10 mL. All instruments and gowns including gloves were changed. The transverse mesocolon including greater omentum was brought down to cover the bowel for abdominal wall closure. All sponge count was verified as correct. The abdomen was closed using double stranded 0 PDS. The subcutaneous tissue was irrigated in a similar fashion. The skin incision was reapproximated using skin abran. An Optifoam incisional length dressing was placed. At the end of the procedure, needle, sponge, and instrument count had been verified correct by the surgical training specialist. The patient was sent to the postanesthesia care unit in stable condition. Intraoperative findings were described to the patient's family who were very pleased with the level of care.
[2019-02-14] MEDS: MORPHINE SULFATE 4 MG/ML SYRINGE IVP ONE ×4 (21:29→21:50)
[2019-02-14] MEDS ORDERED: SODIUM CHLORIDE 0.9% 1,000 ML IV ONE (21:45)
[2019-02-14] MEDS: HYDROcodone/APAP 5-325MG 1 EACH TAB PO PRN (22:11)
[2019-02-14] MEDS: SODIUM CHLORIDE 0.9% 1,000 ML IV SCH (22:41)
[2019-02-15] MEDS: MORPHINE SULFATE 4 MG/ML SYRINGE IV PRN ×4 (01:32→23:48)
[2019-02-15] MEDS: HYDROcodone/APAP 5-325MG 1 EACH TAB PO PRN ×4 (04:14→22:43)
[2019-02-15] MEDS: HYDROmorphone 0.5 MG/0.5 ML SYRINGE IVP PRN ×2 (07:16→11:32)
[2019-02-15] MEDS: SODIUM CHLORIDE 0.9% 1,000 ML IV SCH ×2 (07:27→19:56)
[2019-02-15] MEDS: PANTOPRAZOLE 40 MG/10 ML VIAL IV SCH (07:30)
[2019-02-15] MEDS: NEBIVOLOL 5 MG TAB PO SCH (07:30)
[2019-02-15] MEDS: ENOXAPARIN 40 MG/0.4 ML SYRINGE SQ SCH (07:30)
[2019-02-15 09:07] LABS: Magnesium 1.9 mg/dL (1.6-2.3); Phosphorus 3.2 mg/dL (2.5-4.5)
[2019-02-15] MEDS: SYMBICORT 80-4.5 MCG INHALER INHALATION SCH ×2 (09:07→18:32)
[2019-02-15 09:17] LABS: Basophils % (A) 0 %; Eosinophils # (A) 0.2 k/uL (0-0.7); Eosinophils % (A) 3 %; HCT 48.1 % (39.0-53.0); HGB 15.5 gm/dL (13.0-17.5); Lymphocytes # (A) 0.6 k/uL (1.0-4.8); Lymphocytes % (A) 7 %; MCH 30.6 pg (25.0-35.0); MCHC 32.1 g/dL (31.0-37.0); MCV 95.2 fL (80.0-100.0); Mean Platelet Volume 7.4; Monocytes # (A) 0.3 k/uL (0-1.0); Monocytes % (A) 4 %; Neutrophils # (A) 7.4 k/uL (1.3-7.7); Neutrophils % (A) 86 %; Platelet Count 189 k/uL (150-450); RBC 5.05 m/uL (4.30-5.90); RDW 13.1 % (11.5-15.5); WBC 8.6 k/uL (3.8-10.6)
[2019-02-15 09:41] LABS: C Reactive Protein 16.2 mg/L (<10.0)
[2019-02-15] MEDS: ALBUTEROL NEBULIZED 2.5 MG/3 ML INHALATION PRN ×2 (12:27→18:32)
--- NOTE | 2019-02-15 12:30 | P.PN ---
Subjective Progress Note Date: 02/15/19 CHIEF COMPLAINT: Abdominal pain HISTORY OF PRESENT ILLNESS: 2-year-old male who is status post reduction of small bowel intussusception via laparotomy, lysis of adhesions, takedown of internal hernia greater omentum, and small bowel wedge resection. POD #1. Patient examined this morning at the bedside. His abdominal pain is tolerable. Denies nausea or vomiting. Tolerating clear liquid diet. Estrella catheter remains intact with clear yellow urine. W BC 8.6. Hemoglobin 15.5. PHYSICAL EXAM: VITAL SIGNS: Currently stable. GENERAL: Well-developed in no acute distress. HEENT: No sclera icterus. Extraocular movements grossly intact. Moist buccal mucosa. Head is atraumatic, normocephalic. Hears conversational speech. No nasal drainage. NECK: Supple without lymphadenopathy. CHEST: Non-labored respirations and equal bilateral excursions. CARDIOVASCULAR: Regular rate with regular rhythm. Palpable 2+ radial pulses. ABDOMEN: Soft. Nondistended. Mild tenderness. Dressing to midline clean dry and intact. MUSCULOSKELETAL: No clubbing, cyanosis or edema. NEUROLOGIC: No focal or lateralizing signs. Cranial nerves II through XII grossly intact. PSYCH: Appropriate affect. Alert and oriented to person, place and time. SKIN: Well perfused. Good skin turgor. ASSESSMENT: 1. Acute small bowel obstruction secondary to small bowel intussusception, status post reduction of small bowel intussusception via laparotomy, lysis of adhesions, takedown of internal hernia greater omentum, and small bowel wedge resection 2. Change in bowel habits with possible gastrointestinal bleeding 3. Nicotine dependence PLAN: 1. Discontinue urinary catheter this morning 2. Incentive spirometry 3. Pain control 4. Activity as tolerated. Patient encouraged to be out of bed and ambulatory today 5. Continue clear liquid diet until patient begins passing flatus. 6. Possible discharge home tomorrow Nurse practitioner note has been reviewed by physician. Signing provider agrees with the documented findings, assessment, and plan of care. Objective - Vital Signs Vital signs: Vital Signs Temp 97.6 F 02/15/19 12:03 Pulse 74 02/15/19 12:03 Resp 17 02/15/19 12:03 BP 131/82 02/15/19 12:03 Pulse Ox 96 02/15/19 12:03 Intake & Output 02/14/19 02/15/19 02/15/19 18:59 06:59 18:59 Intake Total 1300 2720 Output Total 910 Balance 1300 1810 Weight 90.718 kg Intake: IV 1450 Amount of Fluid Infused ( 1300 ml) Intake, IV Titration 850 Amount Sodium Chloride 0.9% 1, 800 000 ml @ 100 mls/hr IV . Q10H [facility] Rx#:[id number] ceFAZolin 2 gm In Sodium 50 Chloride 0.9% 50 ml @ 100 mls/hr IVPB ONCE ONE Rx# :[id number] Oral 420 Output: Urine 900 Estimated Blood Loss 10 Other: # Voids 1 1 # Bowel Movements 1 - Labs CBC & Chem 7: 02/15/19 08:41 02/14/19 10:00 Labs: Abnormal Lab Results - Last 24 Hours (Table) 02/15/19 02/15/19 Range/Units 08:41 08:41 Lymphocytes # 0.6 L (1.0-4.8) k/uL C-Reactive Protein 16.2 H (<10.0) mg/L Assessment and Plan (1) Abdominal pain Current Visit: Yes Status: Acute Code(s): R10.9 - UNSPECIFIED ABDOMINAL PAIN SNOMED Code(s): 07691941 (2) Intussusception Current Visit: Yes Status: Acute Code(s): K56.1 - INTUSSUSCEPTION SNOMED Code(s): 16006844
[2019-02-15] MEDS: NICOTINE 21MG/24HR PATCH TRANSDERM SCH (12:54)
[2019-02-15] MEDS: ONDANSETRON 4 MG/2 ML VIAL IVP PRN (19:01)
[2019-02-16] MEDS: SODIUM CHLORIDE 0.9% 1,000 ML IV SCH ×3 (04:21→22:10)
[2019-02-16] MEDS: MORPHINE SULFATE 4 MG/ML SYRINGE IV PRN (06:21)
--- NOTE | 2019-02-16 07:37 | P.PN ---
Subjective Progress Note Date: 02/15/19 This is a 38-year-old gentleman admitted with acute small bowel obstruction secondary to intussusception status post laparotomy reduction of small bowel intussusception, lysis of adhesions, takedown of an internal hernia greater omentum and small bowel wedge resection. Tolerated procedure well. Pain con trolled. Tolerating clear liquids with no nausea or vomiting. No flatus. Vital signs stable, maintaining O2 sats in the high 90s on room air. Hemoglobin 15.5. Afebrile, normal WBC. Denies chest pain, palpitations or shortness of breath. Denies lightheadedness dizziness or focal deficits. Objective - Vital Signs Vital signs: Vital Signs Temp 97.4 F L 02/15/19 04:51 Pulse 64 02/15/19 04:51 Resp 16 02/15/19 04:51 BP 123/78 02/15/19 04:51 Pulse Ox 94 L 02/15/19 04:51 Intake & Output 02/14/19 02/15/19 02/15/19 18:59 06:59 18:59 Intake Total 1300 2720 Output Total 910 Balance 1300 1810 Weight 90.718 kg Intake: IV 1450 Amount of Fluid Infused ( 1300 ml) Intake, IV Titration 850 Amount Sodium Chloride 0.9% 1, 800 000 ml @ 100 mls/hr IV . Q10H [facility] Rx#:[id number] ceFAZolin 2 gm In Sodium 50 Chloride 0.9% 50 ml @ 100 mls/hr IVPB ONCE ONE Rx# :[id number] Oral 420 Output: Urine 900 Estimated Blood Loss 10 Other: # Voids 1 1 # Bowel Movements 1 - Exam PHYSICAL EXAM: VITAL SIGNS: As above GENERAL: Sitting up in bed, no acute distress HEENT: Conjunctivae normal. eyes normal. Oral mucosa moist NECK: No JVD. No thyroid enlargement. No LNs CARDIOVASCULAR: S1, S2 regular.. No murmur RESPIRATION: Breath sounds diminished in the bases. No rhonchi or crackles. No bronchial breathing. ABDOMEN: Soft, nondistended, status post surgery, midline dressing clean dry and intact. HypoactiveBowel sounds heard. LEGS: No edema. no swelling PSYCHIATRY: Alert and oriented X3, mood and affect normal. NERVOUS SYSTEM: Cranial N 2-12 grossly normal. Moves all 4 limbs. Diffuse weakness No focal deficits. Strength and sensation grossly intact.. Skin: no lesions, no rash Lymphatic system. No LN neck axilla or groin. - Labs CBC & Chem 7: 02/15/19 08:41 02/14/19 10:00 Labs: Abnormal Lab Results - Last 24 Hours (Table) 02/15/19 02/15/19 Range/Units 08:41 08:41 Lymphocytes # 0.6 L (1.0-4.8) k/uL C-Reactive Protein 16.2 H (<10.0) mg/L Assessment and Plan Assessment: Abdominal pain secondary to acute small bowel obstruction related to intussusception as per CT. Status post laparotomy reduction of small bowel intussusception, lysis of adhesions, takedown of internal hernia greater omentum and small bowel wedge resection. -Nicotine dependence -Hypertension -Chronic back pain -History of hernia repair -Marijuana use Plan: Continue current medication regime ,monitoring and symptomatic treatment. Aggressive pulmonary toileting with incentive spirometer reinforced. Increase a ctivity as tolerated. Diet advancement as per surgery. GI and DVT prophylaxis in place. Follow closely with surgery. Further recommendations to follow. The impression and plan of care has been dictated as directed. : I performed a history and examination of this patient, discussed the same with the dictator. I agree with the dictator's note ,documented as a scribe. Any additional findings or plans will be noted.
[2019-02-16] MEDS: SYMBICORT 80-4.5 MCG INHALER INHALATION SCH ×2 (08:37→20:23)
[2019-02-16] MEDS: NICOTINE 21MG/24HR PATCH TRANSDERM SCH (09:44)
[2019-02-16] MEDS: PANTOPRAZOLE 40 MG/10 ML VIAL IV SCH (09:44)
[2019-02-16] MEDS: ENOXAPARIN 40 MG/0.4 ML SYRINGE SQ SCH (09:44)
[2019-02-16] MEDS: NEBIVOLOL 5 MG TAB PO SCH (09:45)
[2019-02-16] MEDS ORDERED: KETOROLAC 30 MG/ML 1 ML VIAL IVP PRN (10:29)
[2019-02-16] MEDS: ONDANSETRON 4 MG/2 ML VIAL IVP PRN (10:40)
--- NOTE | 2019-02-16 11:31 | P.PN ---
Subjective Progress Note Date: 02/16/19 CHIEF COMPLAINT: Abdominal pain HISTORY OF PRESENT ILLNESS: 2-year-old male who is status post reduction of small bowel intussusception via laparotomy, lysis of adhesions, takedown of internal hernia greater omentum, and small bowel wedge resection. POD #2. Patient examined this morning. He is sitting up in the chair. He reports his pain is tolerable. Patient currently on clear liquid diet. He has also candy at his bedside. Enforced that patient is on clear liquid diet and no candy allowed at this time. Patient reports feeling nauseous this morning. No emesis. Patient denies passing flatus or BM. Bowel movement charted yesterday per assistant professor of nursing. Patient is adament he did not have a bowel movement yesterday. PHYSICAL EXAM: VITAL SIGNS: Currently stable. GENERAL: Well-developed in no acute distress. HEENT: No sclera icterus. Extraocular movements grossly intact. Moist buccal mucosa. Head is atraumatic, normocephalic. Hears conversational speech. No nasal drainage. NECK: Supple without lymphadenopathy. CHEST: Non-labored respirations and equal bilateral excursions. CARDIOVASCULAR: Regular rate with regular rhythm. Palpable 2+ radial pulses. ABDOMEN: Soft. Mildly distended. Mild tenderness. Dressing to midline intact with shadowing present. MUSCULOSKELETAL: No clubbing, cyanosis or edema. NEUROLOGIC: No focal or lateralizing signs. Cranial nerves II through XII grossly intact. PSYCH: Appropriate affect. Alert and oriented to person, place and time. SKIN: Well perfused. Good skin turgor. ASSESSMENT: 1. Acute small bowel obstruction secondary to small bowel intussusception, status post reduction of small bowel intussusception via laparotomy, lysis of adhesions, takedown of internal hernia greater omentum, and small bowel wedge resection 2. Change in bowel habits with possible gastrointestinal bleeding 3. Nicotine dependence PLAN: 1. Clear liquid diet only until patient begins passing flatus. NO candy or outside food. 2. Incentive spirometry 3. Pain control. Reduce use of IV narcotics. IV toradol ordered PRN 4. Activity as tolerated. Patient encouraged to be out of bed and ambulatory today Nurse practitioner note has been reviewed by physician. Signing provider agrees with the documented findings, assessment, and plan of care. Objective - Vital Signs Vital signs: Vital Signs Temp 97.8 F 02/16/19 05:00 Pulse 74 07/31/19 08:25 Resp 18 02/16/19 08:25 BP 121/74 02/16/19 05:00 Pulse Ox 93 L 02/16/19 05:00 Intake & Output 02/15/19 02/16/19 02/16/19 18:59 06:59 18:59 Intake Total 800 2360 Output Total 1250 1450 Balance -450 910 Intake: Intake, IV Titration 800 1100 Amount Sodium Chloride 0.9% 1, 800 1100 000 ml @ 100 mls/hr IV . Q10H [facility] Rx#:[id number] Oral 1260 Output: Urine 1250 1450 Straight 800 800 Other: Voiding Method Indwelling Catheter Indwelling Catheter Urinal # Voids 1 - Labs CBC & Chem 7: 02/15/19 08:41 02/14/19 10:00 Assessment and Plan (1) Abdominal pain Current Visit: Yes Status: Acute Code(s): R10.9 - UNSPECIFIED ABDOMINAL PAIN SNOMED Code(s): 23237416 (2) Intussusception Current Visit: Yes Status: Acute Code(s): K56.1 - INTUSSUSCEPTION SNOMED Code(s): 69200057
[2019-02-16 12:09] VITALS: RESP 16
[2019-02-16] MEDS: HYDROcodone/APAP 5-325MG 1 EACH TAB PO PRN ×3 (12:33→22:52)
--- NOTE | 2019-02-16 12:46 | P.PN ---
Subjective Progress Note Date: 02/16/19 This is a 38-year-old gentleman admitted with acute small bowel obstruction secondary to intussusception status post laparotomy reduction of small bowel intussusception, lysis of adhesions, takedown of an internal hernia greater omentum and small bowel wedge resection. Tolerated procedure well. Pain controlled. Tolerating clear liquids with no nausea or vomiting. No flatus. Vital signs stable, maintaining O2 sats in the high 90s on room air. Hemoglobin 15.5. Afebrile, normal WBC. Denies chest pain, palpitations or shortness of breath. Denies lightheadedness dizziness or focal deficits. 02/16/2019 maintained on clear liquid, reports no flatus, no bowel movement(john wel movement charted for yesterday under I & O). Complains of nausea without emesis. Open package of mentos at bedside.VSS. Afebrile. Maintaining O2 sats in the 90s on room air. Denies chest pain, palpitations or shortness of breath. Objective - Vital Signs Vital signs: Vital Signs Temp 98 F 02/16/19 12:09 Pulse 62 02/16/19 12:09 Resp 16 02/16/19 12:09 BP 151/96 02/16/19 12:09 Pulse Ox 96 02/16/19 12:09 Intake & Output 02/15/19 02/16/19 02/16/19 18:59 06:59 18:59 Intake Total 800 2360 Output Total 1250 1450 Balance -450 910 Intake: Intake, IV Titration 800 1100 Amount Sodium Chloride 0.9% 1, 800 1100 000 ml @ 100 mls/hr IV . Q10H [facility] Rx#:[id number] Oral 1260 Output: Urine 1250 1450 Straight 800 800 Other: Voiding Method Indwelling Catheter Indwelling Catheter Urinal # Voids 1 - Exam PHYSICAL EXAM: VITAL SIGNS: As above GENERAL: Sitting up in bed, no acute distress HEENT: Conjunctivae normal. eyes normal. Oral mucosa moist NECK: No JVD. No thyroid enlargement. No LNs CARDIOVASCULAR: S1, S2 regular.. No murmur RESPIRATION: Breath sounds diminished in the bases. No rhonchi or crackles. No bronchial breathing. ABDOMEN: Soft, nondistended, status post surgery, midline dressing with shadowing intact. HypoactiveBowel sounds heard. LEGS: No edema. no swelling PSYCHIATRY: Alert and oriented X3, mood and affect normal. NERVOUS SYSTEM: Cranial N 2-12 grossly normal. Moves all 4 limbs. Diffuse weakness No focal deficits. Strength and sensation grossly intact.. Skin: no lesions, no rash - Labs CBC & Chem 7: 02/15/19 08:41 02/14/19 10:00 Assessment and Plan Assessment: Abdominal pain secondary to acute small bowel obstruction related to intussusception as per CT. Status post laparotomy reduction of small bowel intussusception, lysis of adhesions, takedown of internal hernia greater omentum and small bowel wedge resection. -Nicotine dependence -Hypertension -Chronic back pain -History of hernia repair -Marijuana use Plan: Continue current medication regime ,monitoring and symptomatic treatment. Pain management, diet advancement as per surgery.Maintain aggressive pulmonary toileting with incentive spirometer reinforced. Increase activity as tolerated. Further recommendations to follow. The impression and plan of care has been dictated as directed. : I performed a history and examination of this patient, discussed the same with the dictator. I agree with the dictator's note ,documented as a scribe. Any additional findings or plans will be noted.
[2019-02-17] MEDS: HYDROcodone/APAP 5-325MG 1 EACH TAB PO PRN ×3 (03:04→13:29)
[2019-02-17] MEDS: ONDANSETRON 4 MG/2 ML VIAL IVP PRN (03:08)
[2019-02-17] MEDS: SYMBICORT 80-4.5 MCG INHALER INHALATION SCH (07:42)
[2019-02-17] MEDS ORDERED: METOCLOPRAMIDE 5 MG/ML 2 ML VIAL IVP STA (08:23)
[2019-02-17] MEDS: ENOXAPARIN 40 MG/0.4 ML SYRINGE SQ SCH (09:02)
[2019-02-17] MEDS: NEBIVOLOL 5 MG TAB PO SCH (09:03)
[2019-02-17] MEDS: PANTOPRAZOLE 40 MG/10 ML VIAL IV SCH (09:03)
[2019-02-17] MEDS: NICOTINE 21MG/24HR PATCH TRANSDERM SCH (09:03)
--- NOTE | 2019-02-17 09:42 | P.PN ---
Subjective Progress Note Date: 02/17/19 CHIEF COMPLAINT: Abdominal pain HISTORY OF PRESENT ILLNESS: 38-year-old male who is status post reduction of small bowel intussusception via laparotomy, lysis of adhesions, takedown of internal hernia greater omentum, and small bowel wedge resection. PO D #3. Patient examined this morning. He is laying in the bed. He reports ambulating around the unit last night. He is tolerating clear liquid diet. He reports an episode of nausea last night. No emesis. Bowel movements have been charted in EMR. Patient denies having any bowel movements since surgery. He denies passing gas. Vital signs are stable. PHYSICAL EXAM: VITAL SIGNS: Currently stable. GENERAL: Well-developed in no acute distress. HEENT: No sclera icterus. Extraocular movements grossly intact. Moist buccal mucosa. Head is atraumatic, normocephalic. Hears conversational speech. No nasal drainage. NECK: Supple without lymphadenopathy. CHEST: Non-labored respirations and equal bilateral excursions. CARDIOVASCULAR: Regular rate with regular rhythm. Palpable 2+ radial pulses. ABDOMEN: Soft. Mildly distended. Mild tenderness. Dressing to midline intact with shadowing present. MUSCULOSKELETAL: No clubbing, cyanosis or edema. NEUROLOGIC: No focal or lateralizing signs. Cranial nerves II through XII grossly intact. PSYCH: Appropriate affect. Alert and oriented to person, place and time. SKIN: Well perfused. Good skin turgor. ASSESSMENT: 1. Acute small bowel obstruction secondary to small bowel intussusception, status post reduction of small bowel intussusception via laparotomy, lysis of adhesions, takedown of internal hernia greater omentum, and small bowel wedge resection 2. Change in bowel habits with possible gastrointestinal bleeding 3. Nicotine dependence PLAN: 1. Clear liquid diet only until patient begins passing flatus. 2. Incentive spirometry 3. Pain control. Continue [place]. 4. Activity as tolerated. 5. Reglan 10mg IV x 1 dose 6. Patient is not cleared for discharge from a surgical standpoint until he begins passing flatus Nurse practitioner note has been reviewed by physician. Signing provider agrees with the documented findings, assessment, and plan of care. Objective - Vital Signs Vital signs: Vital Signs Temp 98.0 F 02/17/19 05:00 Pulse 79 02/17/19 05:00 Resp 16 02/17/19 05:00 BP 134/79 02/17/19 05:00 Pulse Ox 94 L 02/17/19 05:00 Intake & Output 02/16/19 02/17/19 02/17/19 18:59 06:59 18:59 Intake Total 820 590 Output Total 350 Balance 470 590 Intake: Oral 820 590 Output: Urine 350 Other: Voiding Method Urinal Toilet Toilet # Voids 3 1 # Bowel Movements 1 - Labs CBC & Chem 7: 02/15/19 08:41 02/14/19 10:00 Assessment and Plan (1) Abdominal pain Current Visit: Yes Status: Acute Code(s): R10.9 - UNSPECIFIED ABDOMINAL PAIN SNOMED Code(s): 33245670 (2) Intussusception Current Visit: Yes Status: Acute Code(s): K56.1 - INTUSSUSCEPTION SNOMED Code(s): 77203477
[2019-02-17 11:48] VITALS: BP 112/70; PULSE 81; TEMP 98.2
[2019-02-17 13:47] LABS: C-ANCA <1:20 Titer (<1:20)
--- NOTE | 2019-02-17 17:36 | DS ---
DISCHARGE SUMMARY Dr. Laboy is covering for Dr. Stefano Cano. DATE OF DISCHARGE: 02/17/2019 DATE OF ADMISSION: 02/14/2019. INTERVAL HISTORY: The patient is a 38-year-old male who came in with abdominal pain and had a CT scan that showed possible intussusception. The patient was taken to the OR. Postoperative diagnosis was positive for intussusception, acute small bowel obstruction, internal hernia of the greater omentum, right lower quadrant peritoneal adhesions, small bowel desiccation, mid jejunum and proximal ileum. The patient underwent reduction of the small bowel intussusception via laparotomy, lysis of adhesions, takedown of an internal hernia of the greater omentum and small bowel wedge resection. The patient is seen today sitting up in a chair, eager to go home. He is tolerating a diet. He has positive bowel sounds, is passing flatness. Has not had a bowel movement but has been cleared by Surgery to go home. Patient is hemodynamically stable, afebrile, in no acute distress. PHYSICAL EXAMINATION: VITAL SIGNS: Temperature is 98.2, heart rate 81, respiratory rate 16, blood pressure 112/70, oxygen saturation 95% on room air. HEENT: Head is normocephalic, atraumatic. NECK: Supple. Trachea is midline. LUNGS: Clear. No rales or wheezes. HEART: S1 and S2 are heard. Not tachycardic. ABDOMEN: Soft. Does have abdominal binder on. Bowel sounds are positive. EXTREMITIES: No edema. NEUROLOGIC: Patient is awake, alert, oriented. LABS/IMAGING: No new labs to review today. No new imaging to review. FINAL DIAGNOSES: 1. Acute small bowel obstruction related to intussusception. 2. Status post laparotomy, reduction of small bowel intussusception, lysis of adhesions, takedown of internal hernia, greater omentum, and small bowel wedge resection. 3. Nicotine dependence. 4. Hypertension. 5. Chronic back pain. 6. History of hernia repair. 7. Marijuana use. PLAN: The patient is to discharge home on previous home medications to include: 1. Motrin 800 mg p.o. daily p.r.n. 2. Bystolic 5 mg p.o. each morning. 3. Breo 1 puff daily. 4. Dicyclomine 10 mg p.o. t.i.d. 5. A prescription is being provided for nicotine transdermal patch 21 mg to be changed daily, one-month supply. The patient is to follow up with Surgery as scheduled and to follow up with Dr. Cano in one week. Diet per Surgery. The patient's status at time of discharge is stable. The patient was counseled on quitting smoking. MMODL / IJN: [id number] /
== END 2019-02-17 16:13 | disposition home or self-care (01) | DRG 330 ==
LOC: EC 08:58 → 4SSUR 12:16 → 3NMEDONC 16:50
PROVIDERS: ADMIT Family Medicine; ATTEND Family Medicine
PROC: 0DSA0ZZ Reposition Jejunum, Open Approach (ICD-10-PCS; 2019-02-14)
PROC: 0DQV0ZZ Repair Mesentery, Open Approach (ICD-10-PCS; 2019-02-14)
PROC: 0DBA0ZZ Excision of Jejunum, Open Approach (ICD-10-PCS; principal; 2019-02-14 19:30)
DX: K56.1 Intussusception (principal); K92.2 Gastrointestinal hemorrhage, unspecified; K56.609 Unspecified intestinal obstruction, unspecified as to partial versus complete obstruction; F17.210 Nicotine dependence, cigarettes, uncomplicated; G89.29 Other chronic pain; I10 Essential (primary) hypertension; M54.9 Dorsalgia, unspecified; K45.8 Other specified abdominal hernia without obstruction or gangrene; Z90.49 Acquired absence of other specified parts of digestive tract; Z79.899 Other long term (current) drug therapy; Z83.3 Family history of diabetes mellitus
CPT/HCPCS: 36415; 74177; 80053; 81001; 81220; 82150; 83690; 83735; 84100; 85025; 85652; 86140; 86255; 86671; 88305; 94640; 96361; 96374; 99285

== ENCOUNTER → 2019-03-14 | Outpatient (CLI) | payer MEDICARE, OTHER ==
--- NOTE | 2019-03-14 12:57 | CT ---
EXAMINATION TYPE: CT abdomen pelvis wo con DATE OF EXAM: 03/14/2019 COMPARISON: 02/14/2019 INDICATION: Fistula of intestine DLP: 490.80 mGycm, Automated exposure control for dose reduction was used. CONTRAST: 0 mL of Isovue 300. Study performed with Oral Contrast TECHNIQUE: Axial images were obtained from above the diaphragm to the pubic rami in the axial plane a t 5 mm thick sections. Reconstructed images are reviewed on the computer in the coronal plane. FINDINGS: Limited CT sections are obtained the lung bases. The lung bases are clear. CT ABDOMEN: Liver: Normal Spleen: Normal Pancreas: Normal Adrenal glands: The adrenal glands are normal. Gallbladder: Normal Kidneys: No masses are evident. No hydronephrosis is present. No cysts are present. 2 punctate hyp erdensities are present within the medial left kidney, series 3 image 26 could be tiny nonobstructing renal stones. Couple of punctate densities may be within the upper right kidney, series 3 image 31 m ay be small nonobstructing renal stones. Aorta: Normal Inferior vena cava: Normal. CT PELVIS: Loops of bowel within the abdomen and pelvis are normal. There are loops of bowel which are incom pletely distended or lack oral contrast limiting their evaluation. Contrast extravasation out of loop s of bowel into other areas is not identified. No fistula formation is evident based on this exam. Appendix: Normal as visualized. Urinary bladder: Normal. Genitourinary structures: Prostate is slightly prominent Osseous structures: No suspicious lytic or sclerotic lesions. IMPRESSIONS: 1. Fistula formation from the bowel was not identified. 2. Postsurgical changes within the midline abdomen
== END ==
LOC: RADCTMAIN 10:27
PROVIDERS: ATTEND Family Medicine
DX: K63.2 Fistula of intestine (principal); Z98.890 Other specified postprocedural states
CPT/HCPCS: 74176

== ENCOUNTER 2019-03-15 13:48 | Observation (INO) | payer MEDICARE, OTHER ==
[2019-03-15 17:02] VITALS: BMI 25.4
[2019-03-15] MEDS ORDERED: IBUPROFEN 800 MG TAB PO PRN (17:03)
[2019-03-15] MEDS: HYDROcodone/APAP 10-325MG 1 EACH TAB PO PRN (17:32)
[2019-03-15] MEDS: SODIUM CHLORIDE 0.9% 1,000 ML IV SCH (17:33)
[2019-03-15 18:57] LABS: Basophils % (A) 0 %; Eosinophils # (A) 0.1 k/uL (0-0.7); Eosinophils % (A) 0 %; HCT 44.8 % (39.0-53.0); HGB 15.1 gm/dL (13.0-17.5); Lymphocytes # (A) 0.5 k/uL (1.0-4.8); Lymphocytes % (A) 4 %; MCH 31.6 pg (25.0-35.0); MCHC 33.8 g/dL (31.0-37.0); MCV 93.7 fL (80.0-100.0); Mean Platelet Volume 7.5; Monocytes # (A) 0.6 k/uL (0-1.0); Monocytes % (A) 4 %; Neutrophils % (A) 91 %; Platelet Count 238 k/uL (150-450); RBC 4.78 m/uL (4.30-5.90); RDW 12.7 % (11.5-15.5); WBC 13.2 k/uL (3.8-10.6)
[2019-03-15 19:10] LABS: ALT 22 U/L (21-72); AST 16 U/L (17-59); African American GFR (CKD) >90 (>60 ml/min/1.73 sqM); Albumin 3.7 g/dL (3.5-5.0); Alkaline Phosphatase 69 U/L (38-126); Anion Gap 10 mmol/L; Blood Urea Nitrogen 16 mg/dL (9-20); Calcium 8.8 mg/dL (8.4-10.2); Carbon Dioxide 25 mmol/L (22-30); Chloride 101 mmol/L (98-107); Glucose 161 mg/dL (74-99); Potassium 4.1 mmol/L (3.5-5.1); Sodium 136 mmol/L (137-145); Total Bilirubin 0.3 mg/dL (0.2-1.3); Total Protein 6.1 g/dL (6.3-8.2)
[2019-03-15 20:12] LABS: Erythrocyte Sedimentation Rate 35 mm/hr (0-15)
[2019-03-15] MEDS ORDERED: PIPERACILLIN-TAZOBACTAM 3.375 GM in SODIUM CHLORIDE 0.9% 100 ML IVPB SCH (21:00)
[2019-03-15] MEDS: NICOTINE 14MG/24HR PATCH TRANSDERM SCH (21:35)
[2019-03-15] MEDS: DICYCLOMINE 10 MG CAP PO SCH (22:15)
[2019-03-15] MEDS: diphenhydrAMINE 25 MG CAP PO PRN (22:16)
--- NOTE | 2019-03-15 22:42 | US ---
EXAMINATION TYPE: US abdomen limited DATE OF EXAM: 03/15/2019 COMPARISON: NONE CLINICAL HISTORY: postop wound r/o abscess . Scanned over incision area superior to umbilicus and surrounding areas. This indistinct area measures approximately 3.7 x 3.6 x 2.1 cm. The echotexture of the area is markedly heterogeneous, with adjace nt Doppler vascularity noted. Superior to this area are 2 additional regions of interest: #1 is midline anechoic cystlike focus measurin.6 x 0.4 x 0.7 cm. #2 Appears similar and is slightly right of midline, measurin.7 x 0.5 x 0.4 cm. There is some a djacent Doppler vascularity. IMPRESSION: Postoperative study.
[2019-03-15] MEDS ORDERED: VANCOMYCIN IV PER PHARMACY 1 EACH MISC MISCELLANE PRN (22:47)
[2019-03-15] MEDS: methylPREDNISolone SOD SUCCI 40 MG/ML 1 ML VIAL IV SCH (23:24)
[2019-03-15] MEDS: VANCOMYCIN 1,500 MG in SODIUM CHLORIDE 0.9% 250 ML IVPB SCH (23:24)
[2019-03-16] MEDS ORDERED: PIPERACILLIN-TAZOBACTAM 3.375 GM in SODIUM CHLORIDE 0.9% 100 ML IVPB SCH (05:00)
[2019-03-16] MEDS: VANCOMYCIN 1,500 MG in SODIUM CHLORIDE 0.9% 250 ML IVPB SCH ×3 (06:06→23:35)
[2019-03-16] MEDS: SODIUM CHLORIDE 0.9% 1,000 ML IV SCH (06:06)
[2019-03-16] MEDS: SYMBICORT 80-4.5 MCG INHALER INHALATION SCH ×2 (08:53→20:32)
[2019-03-16] MEDS: HYDROcodone/APAP 10-325MG 1 EACH TAB PO PRN ×2 (10:07→19:58)
[2019-03-16] MEDS: NICOTINE 14MG/24HR PATCH TRANSDERM SCH (10:08)
[2019-03-16] MEDS: NEBIVOLOL 5 MG TAB PO SCH (10:08)
[2019-03-16] MEDS: DICYCLOMINE 10 MG CAP PO SCH ×3 (10:08→22:33)
[2019-03-16] MEDS: methylPREDNISolone SOD SUCCI 40 MG/ML 1 ML VIAL IV SCH ×3 (10:08→23:35)
[2019-03-16] MEDS: PANTOPRAZOLE 40 MG/10 ML VIAL IVP SCH (10:08)
[2019-03-16] MEDS: diphenhydrAMINE 25 MG CAP PO PRN ×2 (10:08→16:36)
--- NOTE | 2019-03-16 12:02 | P.GSCN ---
History of Present Illness Consult date: 03/16/19 History of present illness: CHIEF COMPLAINT: Drainage from abdominal wound x 2 days HISTORY OF PRESENT ILLNESS: The patient is a 38 year old male who one month ago had an exploratory laparotomy for intussusception and bowel obstruction. He was just seen in the office one week ago with removal of the abran and had been doing well. No drainage from his incisions. No fevers or chills. Five (5) days following his visit, he had gone out to an event and eating at a restaurant. He had developed acute all over body allergic reaction 5 days ago on Thursday that resulted in welps. He was placed on steroids. He then started to have yellow drainage from his recent midline incision. No abdominal pain. No previous history of MRSA. Reports initial minimal drainage which became copious hence his presentation to his primary care doctor. He had an outside computed tomography scan demonstrating no fistula of his incision. As he had persistent drainage, he was admitted to the hospital yesterday. He also reported new diarrhea with his allergic reaction. He is afebrile. Tolerating diet. PAST MEDICAL HISTORY: See list. PAST SURGICAL HISTORY: See list. MEDICATIONS: See list. ALLERGIES: See list. SOCIAL HISTORY: Active tobacco abuse FAMILY HISTORY: No colon cancer REVIEW OF ORGAN SYSTEMS: CONSTITUTIONAL: No fevers or chills. EYES: Denies any trouble with vision. Wears glasses. HEENT: No difficulties with hearing. No nosebleeds. No difficulty swallowing. RESPIRATORY: Denies pneumonia. Denies any troubles with breathing or dyspnea on exertion. CARDIOVASCULAR: Denies any chest pain, palpitations, or recent heart attacks. GASTROINTESTINAL: Denies fatty food intolerance. Has change in bowel habits and gas bloat. GENITOURINARY: Denies any blood in urine or increased urinary frequency. NEUROLOGICAL: Denies any numbness or tingling along the distal extremities. No seizure disorders or headaches. MUSCULOSKELETAL: Has back pain, stiffness or joint arthritis. SKIN: No current skin cancer. No rash. PSYCHIATRIC: Past depression. No acute suicidal thoughts. ENDOCRINE: Denies current thyroid disorders. Denies any blood sugar glucose intolerance. HEME/LYMPHATIC: Denies any lumps and bumps around the neck. No recent deep v enous thrombosis. ALLERGY/IMMUNOLOGY: No immunoglobulin therapy. No immune deficiencies. BREAST: Denies current breast lumps, pain or nipple discharge. PHYSICAL EXAM: VITALS: Reviewed CONSTITUTIONAL: Well developed and in no acute distress. EYES: Conjuctivae without sclera icterus. Pupils are equally round and reactive to light. Extraocular movements grossly intact. Wears glasses HEAD, EARS, NOSE, THROAT: Moist buccal mucosa. Head is atraumatic, normocephalic. Hears conversational speech. No nasal drainage. NECK: Supple. No JV distention. No thyroidomegaly. RESPIRATORY: Non-labored respirations and equal bilateral excursions. No gross wheezes. CARDIOVASCULAR: Regular rate and rhythm. Extremities without moderate edema. Palpable 2+ radial pulses. ABDOMEN: No hepatomegaly. Soft. Nontender. Well-healed midline incision. Wound evaluated with less than 6-mm yellow non-malordous drainage above umbilicus without cellulitis. Dressing change at bedside. LYMPH: No neck lymphadenopathy. No axillary lymphadenopathy. MUSCULOSKELETAL:Range of motion bilateral upper extremities within normal limits. Nail and fingers with good capillary refill. SKIN: Warm and well perfused with good skin turgor. NEUROLOGIC: Cranial nerves I through XII grossly intact. Sensation upper and extremities intact. No focal or lateralizing signs. PSYCH: Appropriate affect. Alert and oriented to person, place and time. Displays appropriate insight. CLINCAL LABS: Reviewed. Albumin and total protein is low. White blood cell count elevated over 13,000. ESR elevated. RADIOLOGY: Report reviewed without free air identified IMAGING: Independently reviewed showing mass versus intussusception at the left upper quadrant MEDICAL RECORDS: Workup for Crohn's disease demonstrated atypical positive markers from previous admission MICRO: Cultures pending ASSESSMENT: 1. Abdominal wound infection 2. Diffuse ALLERGIC systemic reaction from unknown source 3. Hypoalbuminemia PLAN: 1. High protein diet to facilitate wound healing. 2. Await cultures. 3. Wound care with 4x4 at this time 4. Okay to shower. 5. He is on steroids that can complicate his wound healing as well. Thank you for this kind consultation. Past Medical History Past Medical History: Hypertension Additional Past Medical History / Comment(s): back pain History of Any Multi-Drug Resistant Organisms: None Reported Past Surgical History: Appendectomy, Cholecystectomy, Hernia Repair Additional Past Surgical History / Comment(s): 02/14 laparotomy small bowel resection with lisis of adhesions Dr. Ghosh. left great toe tendon surgery as a child Past Anesthesia/Blood Transfusion Reactions: No Reported Reaction Past Psychological History: No Psychological Hx Reported Smoking Status: Current every day smoker Past Alcohol Use History: Occasional Past Drug Use History: Marijuana - Past Family History Mother Family Medical History: No Reported History Father Family Medical History: Diabetes Mellitus Medications and Allergies Home Medications Medication Instructions Recorded Confirmed Type Nebivolol [Bystolic] 5 mg PO QAM 05/12/15 03/15/19 History Fluticasone/Vilanterol [Breo 1 puff INHALATION RT-DAILY 08/13/15 03/15/19 History Ellipta 100-25 Mcg Iinhaler] HYDROcodone/APAP 10-325MG [[place] 1 tab PO TID PRN 08/13/15 03/15/19 History 10-325] Ibuprofen [Motrin] 800 mg PO DAILY PRN 07/09/18 03/15/19 History Amoxicillin/Potassium Clav 1 tab PO Q12HR 03/15/19 03/15/19 History [Augmentin 875-125 Tablet] Allergies Allergy/AdvReac Type Severity Reaction Status Date / Time No Known Allergies Allergy Verified 03/15/19 18:32 Surgical - Exam Vital Signs Temp Pulse Resp BP Pulse Ox 98.4 F 80 13 137/74 93 L 03/15/19 17:58 03/15/19 17:58 03/15/19 17:58 03/15/19 17:58 03/15/19 17:58 Results - Labs 03/17/19 06:22 03/17/19 06:22 Abnormal Lab Results - Last 24 Hours (Table) 03/15/19 03/15/19 Range/Units 18:31 18:31 WBC 13.2 H (3.8-10.6) k/uL Neutrophils # 12.0 H (1.3-7.7) k/uL Lymphocytes # 0.5 L (1.0-4.8) k/uL ESR 35 H (0-15) mm/hr Sodium 136 L (137-145) mmol/L Glucose 161 H (74-99) mg/dL AST 16 L (17-59) U/L Total Protein 6.1 L (6.3-8.2) g/dL Microbiology - Last 24 Hours (Table) 03/15/19 17:30 Wound Culture - Preliminary Abdomen 03/15/19 17:30 Anaerobic Culture - Preliminary Abdomen Diabetes panel 03/15/19 Range/Units 18:31 Sodium 136 L (137-145) mmol/L Potassium 4.1 (3.5-5.1) mmol/L Chloride 101 (98-107) mmol/L Carbon Dioxide 25 (22-30) mmol/L BUN 16 (9-20) mg/dL Creatinine 0.82 (0.66-1.25) mg/dL Glucose 161 H (74-99) mg/dL Calcium 8.8 (8.4-10.2) mg/dL AST 16 L (17-59) U/L ALT 22 (21-72) U/L Alkaline Phosphatase 69 (38-126) U/L Total Protein 6.1 L (6.3-8.2) g/dL Albumin 3.7 (3.5-5.0) g/dL Calcium panel 03/15/19 Range/Units 18:31 Calcium 8.8 (8.4-10.2) mg/dL Albumin 3.7 (3.5-5.0) g/dL Pituitary panel 03/15/19 Range/Units 18:31 Sodium 136 L (137-145) mmol/L Potassium 4.1 (3.5-5.1) mmol/L Chloride 101 (98-107) mmol/L Carbon Dioxide 25 (22-30) mmol/L BUN 16 (9-20) mg/dL Creatinine 0.82 (0.66-1.25) mg/dL Glucose 161 H (74-99) mg/dL Calcium 8.8 (8.4-10.2) mg/dL Adrenal panel 03/15/19 Range/Units 18:31 Sodium 136 L (137-145) mmol/L Potassium 4.1 (3.5-5.1) mmol/L Chloride 101 (98-107) mmol/L Carbon Dioxide 25 (22-30) mmol/L BUN 16 (9-20) mg/dL Creatinine 0.82 (0.66-1.25) mg/dL Glucose 161 H (74-99) mg/dL Calcium 8.8 (8.4-10.2) mg/dL Total Bilirubin 0.3 (0.2-1.3) mg/dL AST 16 L (17-59) U/L ALT 22 (21-72) U/L Alkaline Phosphatase 69 (38-126) U/L Total Protein 6.1 L (6.3-8.2) g/dL Albumin 3.7 (3.5-5.0) g/dL Assessment and Plan (1) Wound infection Current Visit: Yes Status: Acute Code(s): T14.8XXA - OTHER INJURY OF UNSPECIFIED BODY REGION, INITIAL ENCOUNTER; L08.9 - LOCAL INFECTION OF THE SKIN AND SUBCUTANEOUS TISSUE, UNSP SNOMED Code(s): 46522005 (2) Leukocytosis (leucocytosis) Current Visit: Yes Status: Acute Code(s): D72.829 - ELEVATED WHITE BLOOD CELL COUNT, UNSPECIFIED SNOMED Code(s): 974461892 (3) Urticaria Current Visit: Yes Status: Acute Code(s): L50.9 - URTICARIA, UNSPECIFIED SNOMED Code(s): 578485573
[2019-03-16] MEDS: INSULIN ASPART (NovoLOG) 100 UNIT/ML VIAL SQ SCH ×3 (13:41→23:33)
--- NOTE | 2019-03-16 14:26 | P.CONS ---
History of Present Illness - Reason for Consult Consult date: 03/15/19 abdominal wound/abscess Requesting physician: Stefano Cano - Chief Complaint abdominal wound and drainage X few days - History of Present Illness Patient is a 38-year-old male who is status post laparotomy for small bowel intussusception patient is status post open lysis of adhesion takedown of internal hernia greater omentum and small bowel wedge resection, patient had did well postoperatively however a few days ago the patient stated that there was a small pinhole area in his abdominal incision that never completely healed up and he was taking a shower he started having some purulent drainage from it the patient had becoming of some dull aching pain intensity is about 4-5 out of 10 and no radiation with some surrounding swelling and redness he did have some chills with these symptoms the patient has been evaluated by his primary care physician a CT of abdominal pelvis has been done on 03/15/2019 read by radiology with no fistula formation did mention postsurgical changes within the midline abdominal but did not elaborate any abscess patient subsequently has been admitted to hospital for possible abdominal incision infection and underlying a bscess he was started on Zosyn and infectious disease was consulted for further recommendation regarding antibiotic therapy Review of Systems Positive point has been mentioned in the HPI rest of the systems are negative Past Medical History Past Medical History: Hypertension Additional Past Medical History / Comment(s): back pain History of Any Multi-Drug Resistant Organisms: None Reported Past Surgical History: Appendectomy, Cholecystectomy, Hernia Repair Additional Past Surgical History / Comment(s): 02/14 laparotomy small bowel resection with lisis of adhesions Dr. Ghosh. left great toe tendon surgery as a child Past Anesthesia/Blood Transfusion Reactions: No Reported Reaction Past Psychological History: No Psychological Hx Reported Smoking Status: Current every day smoker Past Alcohol Use History: Occasional Past Drug Use History: Marijuana - Past Family History Mother Family Medical History: No Reported History Father Family Medical History: Diabetes Mellitus Medications and Allergies Home Medications Medication Instructions Recorded Confirmed Type Nebivolol [Bystolic] 5 mg PO QAM 05/12/15 03/15/19 History Fluticasone/Vilanterol [Breo 1 puff INHALATION RT-DAILY 08/13/15 03/15/19 History Ellipta 100-25 Mcg Iinhaler] HYDROcodone/APAP 10-325MG [[place] 1 tab PO TID PRN 08/13/15 03/15/19 History 10-325] Ibuprofen [Motrin] 800 mg PO DAILY PRN 07/09/18 03/15/19 History Amoxicillin/Potassium Clav 1 tab PO Q12HR 03/15/19 03/15/19 History [Augmentin 875-125 Tablet] Allergies Allergy/AdvReac Type Severity Reaction Status Date / Time No Known Allergies Allergy Verified 03/15/19 18:32 Physical Exam Vitals: Intake and Output 03/15/19 03/15/19 03/15/19 06:59 14:59 22:59 Other: Voiding Method Toilet Weight 83 kg GENERAL DESCRIPTION: Middle-aged male lying in bed, no distress. No tachypnea or accessory muscle of respiration use. HEENT: Shows Pallor , no scleral icterus. Oral mucous membrane is dry. No pharyngeal erythema or thrush NECK: Trachea central, no thyromegaly. LUNGS: Unlabored breathing. Clear to auscultation anteriorly. No wheeze or crackle. HEART: S1, S2, regular rate and rhythm. No loud murmur ABDOMEN: Soft, midline abdominal incision small wound with some purulent drainage surrounding swelling and redness and slightly tender EXTREMITIES: No edema of feet. SKIN: No rash, no masses palpable. NEUROLOGICAL: The patient is awake, alert, oriented x3, mood and affect normal. Results CBC & Chem 7: 03/15/19 18:31 03/15/19 18:31 Assessment and Plan Assessment: 1-patient with recent laparotomy for small bowel intussusception and the patient did have lysis of adhesion and wedge resection of small bowel now presenting with non-healing midline incision and small purulent drainage with concern for possible superficial surgical site infection and will need to cover for gram- positive skin bernadette as there was no evidence of any deep abscess on a recent CT that was done yesterday hence no need to cover for gram negative enteric bernadette Plan: 1-blood cultures 1 2-wound cultures to guide antibiotic therapy 3-discontinue Zosyn 4-Vancomycin pharmacy to dose target trough of 15 while watching his kidney function and Vanco trough closely We will follow on clinical condition and cultures to further adjust medication if needed Thank you for this consultation will follow this patient with you Time with Patient: Greater than 30
[2019-03-16 17:31] LABS: Glucose,Whole Blood 153 mg/dL (75-99)
--- NOTE | 2019-03-16 19:31 | HP ---
HISTORY AND PHYSICAL CHIEF COMPLAINT: [id number]old white male, status post laparotomy for bowel intussusception over a month ago, lysis of adhesions, with increasing 2-day onset of worsening wound drainage and swelling and redness around the belly with a large amount of purulent drainage coming out. CT scan did not show fistula, but he is suspicious for an abscess versus severe cellulitis and profuse drainage. Fourteen-point review of systems negative except for mentioned in HPI. PAST MEDICAL HISTORY: 1. Hypertension. 2. Nicotine addiction. 3. Osteoarthritis. 4. Degenerative disc disease. PAST SURGICAL HISTORY: 1. Appendectomy. 2. Cholecystectomy. 3. Hernia repair. 4. Laparotomy for bowel resection. SOCIAL HISTORY: Current an everyday smoker. Marijuana. HOME MEDICATIONS: 1. Bystolic. 2. Breo. 3. [place]. 4. Motrin. 5. Augmentin. ALLERGIES: NEGATIVE. LABS: White count 13.2, hemoglobin 15.1, sodium 135, potassium 4.1. PHYSICAL EXAMINATION: CARDIOVASCULAR: S1, S2. LUNGS: Clear. GI: Soft. Long incisional wound with midline wound hole 2 to 3 to 5 mm with large purulent drainage coming out. MUSCULOSKELETAL: Tenderness to palpation of the lumbar and thoracic spine. ASSESSMENT: 1. Cellulitis of the abdomen versus abscess, new surgical wound after a month postoperative cellulitis of the abdomen, status post intussusception. 2. Nicotine addiction. 3. Asthma. 4. Degenerative disc disease. 5. Hypertension. Continue home medicines. IV antibiotics per Infectious Disease. Surgical consultation. MMODL / IJN: [id number] /
[2019-03-16 20:40] LABS: Glucose,Whole Blood 167 mg/dL (75-99)
[2019-03-17] MEDS ORDERED: VANCOMYCIN TROUGH DUE 1 EACH MISC MISCELLANE ONE (06:00)
--- NOTE | 2019-03-17 06:20 | PN ---
PROGRESS NOTE DATE OF SERVICE: 03/16/2019 REASON FOR FOLLOWUP: Abdominal wound infection Staph aureus. INTERVAL HISTORY: The patient is currently afebrile. Patient abdominal pain has slightly decreased. Denies having any chest pain, shortness of breath or cough. No nausea, no vomiting and no diarrhea. PHYSICAL EXAMINATION: On examination, blood pressure 144/84 with a pulse of 83, temperature of 98. He is 96% on room air. General description is a middle aged male up in the bed in no distress. RESPIRATORY SYSTEM: Unlabored breathing, clear to auscultation anteriorly. HEART: S1, S2. Regular rate and rhythm. ABDOMEN: Soft. Wound is currently dressed. Surrounding has improved, less drainage. LABS: Wound culture now showing presumptive Staph. DIAGNOSTIC IMPRESSION AND PLAN: Patient with abdominal wound cellulitis and superficial abscess. The patient at this time will continue with vancomycin pharmacy to dose as culture for Staphylococcus aureus while awaiting for the sensitivity to finalize and continue supportive care. MMODL / IJN: [id number] /
[2019-03-17 06:49] LABS: Basophils % (A) 0 %; Eosinophils % (A) 0 %; HCT 43.2 % (39.0-53.0); HGB 14.6 gm/dL (13.0-17.5); Lymphocytes # (A) 0.6 k/uL (1.0-4.8); Lymphocytes % (A) 4 %; MCH 32.2 pg (25.0-35.0); MCHC 33.8 g/dL (31.0-37.0); MCV 95.4 fL (80.0-100.0); Mean Platelet Volume 7.7; Monocytes # (A) 0.4 k/uL (0-1.0); Monocytes % (A) 3 %; Neutrophils # (A) 13.2 k/uL (1.3-7.7); Neutrophils % (A) 92 %; Platelet Count 247 k/uL (150-450); RBC 4.52 m/uL (4.30-5.90); RDW 13.9 % (11.5-15.5); WBC 14.3 k/uL (3.8-10.6)
[2019-03-17 06:57] LABS: Glucose,Whole Blood 133 mg/dL (75-99)
[2019-03-17 07:09] LABS: Chloride 103 mmol/L (98-107)
[2019-03-17 07:12] LABS: African American GFR (CKD) >90 (>60 ml/min/1.73 sqM); Anion Gap 8 mmol/L; Blood Urea Nitrogen 17 mg/dL (9-20); Calcium 9.2 mg/dL (8.4-10.2); Carbon Dioxide 27 mmol/L (22-30); Glucose 128 mg/dL (74-99); Potassium 4.3 mmol/L (3.5-5.1); Sodium 138 mmol/L (137-145)
[2019-03-17] MEDS: INSULIN ASPART (NovoLOG) 100 UNIT/ML VIAL SQ SCH ×4 (07:35→21:40)
[2019-03-17] MEDS: HYDROcodone/APAP 10-325MG 1 EACH TAB PO PRN ×2 (07:38→16:33)
[2019-03-17] MEDS: PANTOPRAZOLE 40 MG/10 ML VIAL IVP SCH (07:38)
[2019-03-17] MEDS: methylPREDNISolone SOD SUCCI 40 MG/ML 1 ML VIAL IV SCH ×3 (07:38→23:27)
[2019-03-17] MEDS: VANCOMYCIN 1,500 MG in SODIUM CHLORIDE 0.9% 250 ML IVPB SCH ×3 (07:38→23:27)
[2019-03-17] MEDS: NICOTINE 14MG/24HR PATCH TRANSDERM SCH (07:38)
[2019-03-17] MEDS: DICYCLOMINE 10 MG CAP PO SCH ×3 (07:39→21:40)
[2019-03-17] MEDS: NEBIVOLOL 5 MG TAB PO SCH (07:39)
[2019-03-17] MEDS: SYMBICORT 80-4.5 MCG INHALER INHALATION SCH ×2 (09:09→19:14)
[2019-03-17 11:05] LABS: Glucose,Whole Blood 132 mg/dL (75-99)
--- NOTE | 2019-03-17 12:07 | P.PN ---
Subjective Progress Note Date: 03/17/19 CHIEF COMPLAINT: Drainage from abdominal wound HISTORY OF PRESENT ILLNESS: The patient is a 38 year old male who one month ago had an exploratory laparotomy for intussusception and bowel obstruction. He had developed acute drainage from above his umbilicus abdominal wound which is moderately improved between yesterday and today while being on vancomycin antibiotics. He is eager to go home. No increased abdominal pain. "I feel great.". No fevers or chills. He is having bowel movement. He is tolerating diet. PHYSICAL EXAM: VITALS: Reviewed CONSTITUTIONAL: Well developed and in no acute distress. EYES: Conjuctivae without sclera icterus. Pupils are equally round and reactive to light. Extraocular movements grossly intact. Wears glasses HEAD, EARS, NOSE, THROAT: Moist buccal mucosa. Head is atraumatic, normocephalic. Hears conversational speech. No nasal drainage. NECK: Supple. No JV distention. No thyroidomegaly. RESPIRATORY: Non-labored respirations and equal bilateral excursions. No gross wheezes. CARDIOVASCULAR: Regular rate and rhythm. Extremities without moderate edema. Palpable 2+ radial pulses. ABDOMEN: No hepatomegaly. Soft. Nontender. Well-healed midline incision. Decreased drainage from 6 mm wound above the umbilicus. Scab removed inferior incision without drainage. No erythema or cellulitis. LYMPH: No neck lymphadenopathy. No axillary lymphadenopathy. MUSCULOSKELETAL:Range of motion bilateral upper extremities within normal limits. Nail and fingers with good capillary refill. SKIN: Warm and well perfused with good skin turgor. NEUROLOGIC: Cranial nerves I through XII grossly intact. Sensation upper and extremities intact. No focal or lateralizing signs. PSYCH: Appropriate affect. Alert and oriented to person, place and time. Displays appropriate insight. CLINCAL LABS: Reviewed. White blood cell count elevated over 13,000 to now 14,0 00. MICRO: Cultures presumptive staph aureus ASSESSMENT: 1. Abdominal wound infection 2. Diffuse ALLERGIC systemic reaction from unknown source 3. Hypoalbuminemia PLAN: 1. Patient was evaluated with infectious disease provider and agree with continuing antibiotics pending microbiology results. 2. Overall, wound moderately improved with improvement clinical status. 3. Surgical options for debridement was described however patient had the [place]. Otherwise, may maintain local wound care 4. Recommend abdominal binder for collapse of the wound cavity Objective - Vital Signs Vital signs: Vital Signs Temp 96.1 F L 03/17/19 05:00 Pulse 62 03/17/19 05:00 Resp 16 03/17/19 05:00 BP 112/64 03/17/19 05:00 Pulse Ox 96 03/17/19 05:00 Intake & Output 03/16/19 03/17/19 03/17/19 18:59 06:59 18:59 Intake Total 850 230 Balance 850 230 Weight 83 kg Intake: Intake, IV Titration 250 230 Amount Sodium Chloride 0.9% 1, 230 000 ml @ 75 mls/hr IV . [id number] Rx#:[id number] Vancomycin 1,500 mg In 250 Sodium Chloride 0.9% 250 ml @ 125 mls/hr IVPB Q8H [facility] Rx#:[id number] Oral 600 Other: Voiding Method Toilet Toilet Toilet # Voids 1 - Labs CBC & Chem 7: 03/17/19 06:22 03/17/19 06:22 Labs: Abnormal Lab Results - Last 24 Hours (Table) 03/16/19 03/16/19 03/17/19 Range/Units 17:30 20:35 06:22 WBC 14.3 H (3.8-10.6) k/uL Neutrophils # 13.2 H (1.3-7.7) k/uL Lymphocytes # 0.6 L (1.0-4.8) k/uL Glucose (74-99) mg/dL POC Glucose (mg/dL) 153 H 167 H (75-99) mg/dL 03/17/19 03/17/19 03/17/19 Range/Units 06:22 06:54 11:00 WBC (3.8-10.6) k/uL Neutrophils # (1.3-7.7) k/uL Lymphocytes # (1.0-4.8) k/uL Glucose 128 H (74-99) mg/dL POC Glucose (mg/dL) 133 H 132 H (75-99) mg/dL Microbiology - Last 24 Hours (Table) 03/15/19 22:47 Blood Culture - Preliminary Blood No Growth after 24 hours 03/15/19 17:30 Gram Stain - Preliminary Abdomen Wound Culture - Preliminary Presumptive Staph aureus Assessment and Plan (1) Wound infection Current Visit: Yes Status: Acute Code(s): T14.8XXA - OTHER INJURY OF UNSPECIFIED BODY REGION, INITIAL ENCOUNTER; L08.9 - LOCAL INFECTION OF THE SKIN AND SUBCUTANEOUS TISSUE, UNSP SNOMED Code(s): 28115156 (2) Leukocytosis (leucocytosis) Current Visit: Yes Status: Acute Code(s): D72.829 - ELEVATED WHITE BLOOD CELL COUNT, UNSPECIFIED SNOMED Code(s): 729313715 (3) Urticaria Current Visit: Yes Status: Acute Code(s): L50.9 - URTICARIA, UNSPECIFIED SNOMED Code(s): 532861755
[2019-03-17 12:19] VITALS: RESP 18
[2019-03-17] MEDS: diphenhydrAMINE 25 MG CAP PO PRN ×2 (13:43→20:04)
--- NOTE | 2019-03-17 14:47 | PN ---
PROGRESS NOTE DATE OF SERVICE: 03/17/2019 REASON FOR FOLLOWUP: Abdominal wound infection. INTERVAL HISTORY: The patient is currently afebrile. The patient needed to be slightly upset and wanted to go home. The patient has refused surgical drainage of his middle abdominal wound. patient denies having any chest pain. No shortness of breath or cough. No nausea, vomiting, no diarrhea. PHYSICAL EXAMINATION: Blood pressure 134/76, pulse of 73, temperature 98.1, he is 95% on room air. General description is a middle aged male, up in the bed in no distress. RESPIRATORY SYSTEM: Unlabored breathing, clear to auscultation anteriorly. HEART: S1, S2. Regular rate and rhythm. ABDOMEN: Abdominal wall redness has improved, wound still has some purulent drainage. LABS: Hemoglobin is 14.6, white count of 14.2, BUN of 17, creatinine 0.77. Vanc trough is 13.5. DIAGNOSTIC IMPRESSION AND PLAN: Patient with a midline abdominal suture abscess. Patient was advised just drainage; however, he is currently refusing it. Plan is for continuation of IV vancomycin while waiting for the sensitivity to finalize to determine discharge antibiotics and continue supportive care. MMODL / IJN: [id number] /
[2019-03-17 17:11] LABS: Glucose,Whole Blood 151 mg/dL (75-99)
[2019-03-17 21:16] LABS: Glucose,Whole Blood 156 mg/dL (75-99)
[2019-03-18] MEDS: HYDROcodone/APAP 10-325MG 1 EACH TAB PO PRN ×2 (01:15→08:22)
[2019-03-18 05:51] VITALS: BP 101/50; PULSE 55; TEMP 97.7
[2019-03-18 07:12] LABS: Glucose,Whole Blood 107 mg/dL (75-99)
[2019-03-18] MEDS: INSULIN ASPART (NovoLOG) 100 UNIT/ML VIAL SQ SCH ×2 (08:07→12:28)
[2019-03-18] MEDS: methylPREDNISolone SOD SUCCI 40 MG/ML 1 ML VIAL IV SCH (08:21)
[2019-03-18] MEDS: PANTOPRAZOLE 40 MG/10 ML VIAL IVP SCH (08:21)
[2019-03-18] MEDS: DICYCLOMINE 10 MG CAP PO SCH (08:21)
[2019-03-18] MEDS: NICOTINE 14MG/24HR PATCH TRANSDERM SCH ×2 (08:21→08:22)
[2019-03-18] MEDS: VANCOMYCIN 1,500 MG in SODIUM CHLORIDE 0.9% 250 ML IVPB SCH (08:23)
--- NOTE | 2019-03-18 09:36 | P.PN ---
Subjective Progress Note Date: 03/18/19 CHIEF COMPLAINT: Drainage from abdominal wound HISTORY OF PRESENT ILLNESS: The patient is a 38 year old male who had developed acute drainage from above his umbilicus abdominal wound. He has drainage. No fevers. No abdominal pain. PHYSICAL EXAM: VITALS: Reviewed CONSTITUTIONAL: Well developed and in no acute distress. EYES: Conjuctivae without sclera icterus. Pupils are equally round and reactive to light. Extraocular movements grossly intact. Wears glasses HEAD, EARS, NOSE, THROAT: Moist buccal mucosa. Head is atraumatic, normocephalic. Hears conversational speech. No nasal drainage. NECK: Supple. No JV distention. No thyroidomegaly. RESPIRATORY: Non-labored respirations and equal bilateral excursions. No gross wheezes. CARDIOVASCULAR: Regular rate and rhythm. Extremities without moderate edema. Palpable 2+ radial pulses. ABDOMEN: At bedside, wound flushed with 10-ml normal saline with pediatric catheter tip. Dressing and wound care reviewed with him. Abdominal binder place d. No new wound or skin breakdown. No cellulitis. Purulent drainage unchanged. MUSCULOSKELETAL:Range of motion bilateral upper extremities within normal limits. Nail and fingers with good capillary refill. SKIN: Warm and well perfused with good skin turgor. NEUROLOGIC: Cranial nerves I through XII grossly intact. Sensation upper and extremities intact. No focal or lateralizing signs. PSYCH: Appropriate affect. Alert and oriented to person, place and time. Displays appropriate insight. CLINCAL LABS: Reviewed. White blood cell count today is pending. MICRO: MSSA stap resistant to erythromycin ASSESSMENT: 1. Abdominal wound infection 2. Diffuse ALLERGIC systemic reaction from unknown source 3. Hypoalbuminemia PLAN: 1. Wound and dressing care reviewed including flushing wound twice daily with normal saline. 2. Okay to shower with wound open. 3. High protein diet and avoiding tobacco exposure reviewed 4. He is cleared for discharge with follow up in the office 5 days. Objective - Vital Signs Vital signs: Vital Signs Temp 97.7 F 03/18/19 05:00 Pulse 55 L 03/18/19 05:00 Resp 18 03/18/19 05:00 BP 101/50 03/18/19 05:00 Pulse Ox 95 03/18/19 05:00 Intake & Output 08/29/19 08/30/19 08/30/19 18:59 06:59 18:59 Intake Total 850 2050 Balance 850 2050 Intake: Intake, IV Titration 250 250 Amount Vancomycin 1,500 mg In 250 250 Sodium Chloride 0.9% 250 ml @ 125 mls/hr IVPB Q8H [facility] Rx#:[id number] Oral 600 1800 Other: Voiding Method Toilet Toilet # Voids 3 3 # Bowel Movements 1 - Labs CBC & Chem 7: 03/17/19 06:22 03/17/19 06:22 Labs: Abnormal Lab Results - Last 24 Hours (Table) 03/17/19 03/17/19 03/17/19 Range/Units 11:00 17:08 21:15 POC Glucose (mg/dL) 132 H 151 H 156 H (75-99) mg/dL 03/18/19 Range/Units 07:11 POC Glucose (mg/dL) 107 H (75-99) mg/dL Microbiology - Last 24 Hours (Table) 03/15/19 22:47 Blood Culture - Preliminary Blood No Growth after 48 hours 03/15/19 17:30 Anaerobic Culture - Preliminary Abdomen 03/15/19 17:30 Gram Stain - Final Abdomen Wound Culture - Final Staphylococcus aureus Assessment and Plan (1) Wound infection Current Visit: Yes Status: Acute Code(s): T14.8XXA - OTHER INJURY OF UNSPECIFIED BODY REGION, INITIAL ENCOUNTER; L08.9 - LOCAL INFECTION OF THE SKIN AND SUBCUTANEOUS TISSUE, UNSP SNOMED Code(s): 53100926 (2) Leukocytosis (leucocytosis) Current Visit: Yes Status: Acute Code(s): D72.829 - ELEVATED WHITE BLOOD CELL COUNT, UNSPECIFIED SNOMED Code(s): 225328560 (3) Urticaria Current Visit: Yes Status: Acute Code(s): L50.9 - URTICARIA, UNSPECIFIED SNOMED Code(s): 466054282
[2019-03-18] MEDS: SYMBICORT 80-4.5 MCG INHALER INHALATION SCH (09:46)
[2019-03-18] MEDS: NEBIVOLOL 5 MG TAB PO SCH (10:46)
[2019-03-18 11:31] LABS: Glucose,Whole Blood 135 mg/dL (75-99)
--- NOTE | 2019-03-18 13:56 | PN ---
PROGRESS NOTE DATE OF SERVICE: 03/18/2019 REASON FOR FOLLOWUP: MSSA abdominal wall infection. INTERVAL HISTORY: The patient is currently afebrile. Patient has been breathing comfortably. Patient denies having any chest pain, shortness of breath or cough. He did have washout of his abdominal wound at the bedside by Surgery. The patient tolerated the procedure. PHYSICAL EXAMINATION: Blood pressure 101/50 with a pulse of 55, temperature is 97.7, he is 95% on room air. General description is a middle-aged male, lying in bed in no distress. RESPIRATORY SYSTEM: Unlabored breathing, clear to auscultation anteriorly. HEART: S1, S2. Regular rate and rhythm. ABDOMEN: Soft, no tenderness. LABS: No new labs have been obtained today. Culture positive with MSSA. DIAGNOSTIC IMPRESSION AND PLAN: Patient with abdominal wound infection with methicillin-sensitive Staphylococcus aureus. Antibiotic will be transitioned to oral Keflex 500 mg q.6 hours for 10 days. Prescription was sent to the pharmacy and follow up in the office in a week. Continue supportive care. MMODL / JAIMEN: [id number] /
--- NOTE | 2019-03-18 15:37 | P.PN ---
Subjective Progress Note Date: 03/17/19 This is a 38-year-old gentleman admitted with cellulitis of the abdomen versus abscess, new surgical wound postop intussusception, possible suture abscess and multiple other medical issues. Evaluated by both infectious disease and surgery. Maintained on IV antibiotics of vancomycin with cultures finalizing. Patient was advised I&D but declined. Afebrile, WBC 14.3. Staff reports creamy brown drainage from abdominal wound with no odor. Ambulating, tolerating exertion well. Tolerating diet with no nausea vomiting or diarrhea. Denies abdominal pain. Positive bowel movement today. Denies chest pain, palpitations or shortness of breath. No lightheadedness dizziness or focal deficits. Objective - Vital Signs Vital signs: Vital Signs Temp 98.1 F 03/17/19 11:58 Pulse 73 03/17/19 11:58 Resp 18 03/17/19 11:58 BP 134/76 03/17/19 11:58 Pulse Ox 95 03/17/19 11:58 Intake & Output 03/16/19 03/17/19 03/17/19 18:59 06:59 18:59 Intake Total 850 230 850 Balance 850 230 850 Weight 83 kg Intake: Intake, IV Titration 250 230 250 Amount Sodium Chloride 0.9% 1, 230 000 ml @ 75 mls/hr IV . [id number] [facility] Rx#:[id number] Vancomycin 1,500 mg In 250 250 Sodium Chloride 0.9% 250 ml @ 125 mls/hr IVPB Q8H [facility] Rx#:[id number] Oral 600 600 Other: Voiding Method Toilet Toilet Toilet # Voids 1 3 - Exam PHYSICAL EXAM: VITAL SIGNS: As above GENERAL: Sitting up in bed, no acute distress HEENT: Conjunctivae normal. eyes normal. Oral mucosa moist NECK: No JVD. No thyroid enlargement. No LNs CARDIOVASCULAR: S1, S2 regular.. No murmur RESPIRATION: Breath sounds diminished in the bases. No rhonchi or crackles. No bronchial breathing. ABDOMEN: Soft, tender . No guarding. no masses palpable. No ascites, No hepatosplenomegaly.Bowel sounds heard. Dressing clean dry and intact LEGS: No edema. no swelling PSYCHIATRY: Alert and oriented X3, mood and affect normal. NERVOUS SYSTEM: Cranial N 2-12 grossly normal. Moves all 4 limbs. Diffuse weakness No focal deficits. Strength and sensation grossly intact.. Skin: no lesions, no rash , no calf tenderness - Labs CBC & Chem 7: 03/17/19 06:22 03/17/19 06:22 Labs: Abnormal Lab Results - Last 24 Hours (Table) 03/16/19 03/17/19 03/17/19 Range/Units 20:35 06:22 06:22 WBC 14.3 H (3.8-10.6) k/uL Neutrophils # 13.2 H (1.3-7.7) k/uL Lymphocytes # 0.6 L (1.0-4.8) k/uL Glucose 128 H (74-99) mg/dL POC Glucose (mg/dL) 167 H (75-99) mg/dL 03/17/19 03/17/19 03/17/19 Range/Units 06:54 11:00 17:08 WBC (3.8-10.6) k/uL Neutrophils # (1.3-7.7) k/uL Lymphocytes # (1.0-4.8) k/uL Glucose (74-99) mg/dL POC Glucose (mg/dL) 133 H 132 H 151 H (75-99) mg/dL Microbiology - Last 24 Hours (Table) 03/15/19 22:47 Blood Culture - Preliminary Blood No Growth after 24 hours 03/15/19 17:30 Gram Stain - Preliminary Abdomen Wound Culture - Preliminary Presumptive Staph aureus Assessment and Plan Assessment: -Cellulitis of the abdomen, possible abscess; new surgical wound postoperative cellulitis of the abdomen, status post intussusception -Nicotine dependence -Chronic intermittent asthma -Degenerative joint disease -Hypertension Plan: Continue on current medication regime ,monitoring and symptomatic treatment. Wound care as per surgery. Antibiotics as per ID, final cultures pending. Patient declining option of debridement. ID recommending another 24 hours of IV antibiotics with discharge planning in progress for tomorrow. Increase ambulation. Aggressive pulmonary toileting.Further recommendations to follow. The impression and plan of care has been dictated as directed. : I performed a history and examination of this patient, discussed the same with the dictator. I agree with the dictator's note ,documented as a scribe. Any additional findings or plans will be noted.
--- NOTE | 2019-03-18 15:42 | P.DS ---
Providers Date of admission: 03/15/19 16:10 Expected date of discharge: 03/18/19 Attending physician: Stefano Cano Consults: 03/15/19 17:06 Consult Physician Routine Consulting Provider: Lori Nunez Consult Reason/Comments: postop wound Do you want consulting provider notified?: Yes Placement Type Exists?: Yes Consult Physician Routine Consulting Provider: Tito Arechiga Consult Reason/Comments: postop abdominal wound Do you want consulting provider notified?: Yes Placement Type Exists?: Yes Primary care physician: Stated None Hospital Course: Final Diagnoses: -Cellulitis of the abdomen, possible abscess; new surgical wound postoperative cellulitis of the abdomen, status post intussusception, MSSA -Nicotine dependence -Chronic intermittent asthma -Degenerative joint disease -Hypertension Hospital course:This is a 38-year-old gentleman admitted with cellulitis of the abdomen versus abscess, new surgical wound postop intussusception, possible suture abscess and multiple other medical issues. Evaluated by both infectious disease and surgery. Maintained on IV antibiotics of vancomycin with cultures finalizing. Patient was advised I&D but declined. Afebrile, WBC 14.3. Staff reports creamy brown drainage from abdominal wound with no odor. Ambulating, tolerating exertion well. Tolerating diet with no nausea vomiting or diarrhea. Denies abdominal pain. Positive bowel movement today. Denies chest pain, palpitations or shortness of breath. No lightheadedness dizziness or focal deficits. Microbiology 03/15/19 22:47 Blood Blood Culture - Preliminary No Growth after 48 hours 03/15/19 17:30 Abdomen Anaerobic Culture - Preliminary 03/15/19 17:30 Abdomen Gram Stain - Final 03/15/19 17:30 Abdomen Wound Culture - Final Staphylococcus aureus Significant clinical improvement. IV antibiotics converted to oral per ID. Discharge Wound care as per surgery.Cleared by surgery and ID for discharge. Patient is being discharged home in a stable condition with fair prognosis. EXAM: GENERAL: ALert and oriented 3, no acute distress CARDIOVASCULAR: S1, S2 regular.. No murmur RESPIRATION: Breath sounds diminished in the bases. No rhonchi or crackles. No wheezing. ABDOMEN: Soft, minimal tenderness . No guarding. no masses palpable. Bowel sounds heard. Dressing clean dry and intact. NERVOUS SYSTEM: No focal deficits. The impression and plan of care has been dictated as directed. : I performed a history and examination of this patient, discussed the same with the dictator. I agree with the dictator's note ,documented as a scribe. Any additional findings or plans will be noted. Time taken: 35 minutes Patient Condition at Discharge: Stable Plan - Discharge Summary Discharge Rx Participant: No New Discharge Prescriptions: New Cephalexin [Keflex] 500 mg PO Q6HR #40 cap Dicyclomine [Bentyl] 10 mg PO TID #21 cap Nicotine 14Mg/24Hr Patch [Habitrol] 1 patch TRANSDERM DAILY #30 patch predniSONE 10 mg PO DIRECTED #30 tab Pantoprazole Sodium [Protonix] 40 mg PO DAILY #15 tablet.dr Beck Nebivolol [Bystolic] 5 mg PO QAM Fluticasone/Vilanterol [Breo Ellipta 100-25 Mcg Inhaler] 1 puff INHALATION RT-DAILY HYDROcodone/APAP 10-325MG [[place] 10-325] 1 tab PO TID PRN PRN Reason: Pain Ibuprofen [Motrin] 800 mg PO DAILY PRN PRN Reason: Pain Discharge Medication List Nebivolol [Bystolic] 5 mg PO QAM 05/12/15 [History] Fluticasone/Vilanterol [Breo Ellipta 100-25 Mcg Inhaler] 1 puff INHALATION RT- DAILY 08/13/15 [History] HYDROcodone/APAP 10-325MG [[place] 10-325] 1 tab PO TID PRN 08/13/15 [History] Ibuprofen [Motrin] 800 mg PO DAILY PRN 07/09/18 [History] Cephalexin [Keflex] 500 mg PO Q6HR #40 cap 03/18/19 [Rx] Dicyclomine [Bentyl] 10 mg PO TID #21 cap 03/18/19 [Rx] Nicotine 14Mg/24Hr Patch [Habitrol] 1 patch TRANSDERM DAILY #30 patch 03/18/19 [Rx] Pantoprazole Sodium [Protonix] 40 mg PO DAILY #15 tablet. 03/18/19 [Rx] predniSONE 10 mg PO DIRECTED #30 tab 03/18/19 [Rx] Follow up Appointment(s)/Referral(s): Stefano Cano MD [STAFF PHYSICIAN] - 1 Week (Office closed at time of discharge please call ThursdayMarch 22 to set up a follow up appointment) Lori Nunez MD [STAFF PHYSICIAN] - 03/22/19 4:45 pm Tito Arechiga MD [STAFF PHYSICIAN] - 03/28/19 10:15 am Ambulatory/Diagnostic Orders: Complete Blood Count w/diff [LAB.AMB] Time Frame: 3 Days, Location: None Selected Patient Instructions/Handouts: Cephalexin (By mouth), Dicyclomine (By mouth), Prednisone (By mouth), Nicotine (Absorbed through the skin), Pantoprazole (By mouth), Wound Infection (DC), Urticaria (GEN), Acute Wound Care (DC), Wound Healing and Your Diet (DC), Wound Dehiscence (DC) Activity/Diet/Wound Care/Special Instructions: 1. Irrigate wound with 10-mL of saline until drainage is clear using mcclendon catheter tip and syringe. 2. Cover with dry absorbable dressing. 3. Wear abdominal binder snug. 4. High protein diet over 90 grams daily. 5. Take full course of antibiotics as prescribed. Discharge Disposition: HOME SELF-CARE
[2019-03-19] MEDS ORDERED: VANCOMYCIN TROUGH DUE 1 EACH MISC MISCELLANE ONE (06:00)
[2019-03-19] MEDS ORDERED: PANTOPRAZOLE 40 MG TABLET PO SCH (09:00)
== END 2019-03-18 13:17 | disposition home or self-care (01) ==
LOC: 3NMEDONC 16:10 → INTOOBSV 16:10 → 3NMEDONC 16:27
PROVIDERS: ADMIT Family Medicine; ATTEND Family Medicine
DX: T81.41XA Infection following a procedure, superficial incisional surgical site, initial encounter (principal); L03.311 Cellulitis of abdominal wall; B95.61 Methicillin susceptible Staphylococcus aureus infection as the cause of diseases classified elsewhere; J45.20 Mild intermittent asthma, uncomplicated; I10 Essential (primary) hypertension; M19.90 Unspecified osteoarthritis, unspecified site; M54.9 Dorsalgia, unspecified; E88.09 Other disorders of plasma-protein metabolism, not elsewhere classified; T78.40XA Allergy, unspecified, initial encounter; L50.0 Allergic urticaria; F17.200 Nicotine dependence, unspecified, uncomplicated; Z90.49 Acquired absence of other specified parts of digestive tract; Z79.899 Other long term (current) drug therapy; Z79.891 Long term (current) use of opiate analgesic; Z79.1 Long term (current) use of non-steroidal anti-inflammatories (NSAID); Z83.3 Family history of diabetes mellitus; X58.XXXA Exposure to other specified factors, initial encounter
CPT/HCPCS: 96376 ×3; 96361; 96365; 96366 ×4; 96367; 96375 ×2; 94640 ×4; 80053; 80048; 85652; 83605; 85025 ×2; 80202; 87040; 87070; 87205; 87075; 87077; 87186; 76705; G0378 ×5; G0379; S4990 ×4; J2543; J3370 ×4; J2920 ×4; C9113 ×3

== ENCOUNTER 2020-03-16 18:48 | Emergency (ER) | payer MEDICARE, OTHER ==
[2020-03-16 18:54] VITALS: RESP 18
[2020-03-16 19:32] LABS: Appearance,Urine Clear (Clear); Bilirubin,Urine Negative (Negative); Blood,Urine Negative (Negative); Color,Urine Light Yellow; Glucose,Urine (UA) Negative (Negative); Ketones,Urine Negative (Negative); Leukocyte Esterase,Urine Negative (Negative); Nitrite,Urine Negative (Negative); Protein,Urine Negative (Negative); Specific Gravity,Urine 1.011 (1.001-1.035); Urobilinogen,Urine <2.0 mg/dL (<2.0)
--- NOTE | 2020-03-16 19:32 | ED ---
General Adult HPI - General Chief complaint: Abdominal Pain Stated complaint: Abd pain Time Seen by Provider: 03/16/20 18:55 Source: patient, RN notes reviewed, old records reviewed Mode of arrival: ambulatory Limitations: no limitations - History of Present Illness Initial comments: 39-year-old male patient sent to ED for evaluation of abdominal pain nausea diarrhea for the last 2 weeks. Patient reports that he did have a surgery in March 2019 afterwards he reportedly had complications with a possible abscess. patient reports after he eats he has severe periumbilical abdominal pain as well as diarrhea. denies passing any blood. Denying any other acute complaints. Systemic: Pt denies fatigue, fever/chills, rash. Pt denies weakness, night sweats, weight loss. Neuro: Pt denies headache, visual disturbances, syncope or pre-syncope. HEENT: Pt denies ocular discharge or irritation, otalgia, rhinorrhea, pharyngitis or notable lymphadenopathy. Cardiopulmonary: Pt denies chest pain, SOB, heart palpitations, dyspnea on exertion. : Pt denies dysuria, burning w/ urination, frequency/urgency. Denies new onset urinary or bowel incontinence. MSK: Pt denies myalgia, loss of strength or function in extremities. Neuro: Pt denies new onset weakness, paresthesias. - Related Data Home Medications Medication Instructions Recorded Confirmed Nebivolol [Bystolic] 5 mg PO QAM 05/12/15 03/16/20 Fluticasone/Vilanterol [Breo 1 puff INHALATION RT-DAILY 08/13/15 03/16/20 Ellipta 100-25 Mcg Inhaler] HYDROcodone/APAP 10-325MG [[place] 1 tab PO TID PRN 08/13/15 03/16/20 10-325] ALPRAZolam [ALPRAZolam XR] 0.5 mg PO DAILY PRN 03/16/20 03/16/20 Allergies Allergy/AdvReac Type Severity Reaction Status Date / Time No Known Allergies Allergy Verified 03/16/20 21:15 Review of Systems ROS Statement: Those systems with pertinent positive or pertinent negative responses have been documented in the HPI. ROS Other: All systems not noted in ROS Statement are negative. Past Medical History Past Medical History: Hypertension Additional Past Medical History / Comment(s): back pain History of Any Multi-Drug Resistant Organisms: None Reported Past Surgical History: Appendectomy, Cholecystectomy, Hernia Repair Additional Past Surgical History / Comment(s): 02/14/19 laparotomy small bowel resection with lisis of adhesions Dr. Ghosh. left great toe tendon surgery as a child Past Anesthesia/Blood Transfusion Reactions: No Reported Reaction Past Psychological History: No Psychological Hx Reported Smoking Status: Current every day smoker Past Alcohol Use History: Occasional Past Drug Use History: Marijuana - Past Family History Mother Family Medical History: No Reported History Father Family Medical History: Diabetes Mellitus General Exam - General Exam Comments Initial Comments: Constitutional: NAD, AOX3, Pt has pleasant affect. HEENT: NC/AT, trachea midline, neck supple, no lymphadenopathy. Posterior pharynx non erythematous, without exudates. External ears appear normal, without discharge. Mucous membranes moist. Eyes PERRLA, EOM intact. There is no scleral icterus. No pallor noted. Cardiopulmonary: RRR, no murmurs, rubs or gallops, no JVD noted. Lungs CTAB in anterior and posterior ivy. No peripheral edema. Abdominal exam: Abdomen soft and non-distended. Abdomen mildly tender to palpation in periumbilical region.. Bowel sounds active in LLQ. No hepatosplenomegaly. No ecchymosis Neuro: CN II-XII grossly intact. No nuchal rigidity. No raccon eyes, no arellano sign, no hemotympanum. No cervical spinal tenderness. MSK: Full active ROM in upper and lower extremities, 5/5 stregnth. Limitations: no limitations Course Vital Signs 03/16/20 18:51 Temperature 98.2 F Pulse Rate 77 Respiratory 18 Rate Blood Pressure 150/90 O2 Sat by Pulse 98 Oximetry Medical Decision Making - Medical Decision Making 39-year-old male patient was seen for abdominal pain. Patient reports that he has been having pain for the last 2 weeks reports that pain and diarrhea after eating. Patient will signs are stable, afebrile. Physical exam. Periumbilical tenderness. Laboratory investigations are unremarkable. CT and pelvis displayed prostate hypertrophy. Broad anterior abdominal hernia containing nonobstructive loops of colon. She'll be discharged outpatient follow-up with his primary care provider as well as his general surgeon will return to ER if any worsening symptoms. Case discussed with Dr. Moctezuma. - Lab Data Result diagrams: 03/16/20 19:20 03/16/20 19:20 Lab Results 03/16/20 03/16/20 03/16/20 Range/Units 19:20 19:20 19:20 WBC 7.7 (3.8-10.6) k/uL RBC 5.18 (4.30-5.90) m/uL Hgb 16.3 (13.0-17.5) gm/dL Hct 48.9 (39.0-53.0) % MCV 94.4 (80.0-100.0) fL MCH 31.4 (25.0-35.0) pg MCHC 33.3 (31.0-37.0) g/dL RDW 12.8 (11.5-15.5) % Plt Count 205 (150-450) k/uL Neutrophils % 64 % Lymphocytes % 25 % Monocytes % 5 % Eosinophils % 4 % Basophils % 1 % Neutrophils # 4.9 (1.3-7.7) k/uL Lymphocytes # 1.9 (1.0-4.8) k/uL Monocytes # 0.4 (0-1.0) k/uL Eosinophils # 0.3 (0-0.7) k/uL Basophils # 0.1 (0-0.2) k/uL Sodium 136 L (137-145) mmol/L Potassium 4.1 (3.5-5.1) mmol/L Chloride 104 (98-107) mmol/L Carbon Dioxide 28 (22-30) mmol/L Anion Gap 4 mmol/L BUN 13 (9-20) mg/dL Creatinine 0.95 (0.66-1.25) mg/dL Est GFR (CKD-EPI)AfAm >90 (>60 ml/min/1.73 sqM) Est GFR (CKD-EPI)NonAf >90 (>60 ml/min/1.73 sqM) Glucose 93 (74-99) mg/dL Plasma Lactic Acid [place] (0.7-2.0) mmol/L Calcium 9.3 (8.4-10.2) mg/dL Total Bilirubin 0.7 (0.2-1.3) mg/dL AST 22 (17-59) U/L ALT 15 (4-49) U/L Alkaline Phosphatase 64 (38-126) U/L Troponin I (0.000-0.034) ng/mL Total Protein 6.6 (6.3-8.2) g/dL Albumin 4.4 (3.5-5.0) g/dL Lipase 105 (23-300) U/L Urine Color Light Yellow Urine Appearance Clear (Clear) Urine pH 7.0 (5.0-8.0) Ur Specific [place] 1.011 (1.001-1.035) Urine Protein Negative (Negative) Urine Glucose (UA) Negative (Negative) Urine Ketones Negative (Negative) Urine Blood Negative (Negative) Urine Nitrite Negative (Negative) Urine Bilirubin Negative (Negative) Urine Urobilinogen <2.0 (<2.0) mg/dL Ur Leukocyte Esterase Negative (Negative) 03/16/20 03/16/20 Range/Units 19:20 19:40 WBC (3.8-10.6) k/uL RBC (4.30-5.90) m/uL Hgb (13.0-17.5) gm/dL Hct (39.0-53.0) % MCV (80.0-100.0) fL MCH (25.0-35.0) pg MCHC (31.0-37.0) g/dL RDW (11.5-15.5) % Plt Count (150-450) k/uL Neutrophils % % Lymphocytes % % Monocytes % % Eosinophils % % Basophils % % Neutrophils # (1.3-7.7) k/uL Lymphocytes # (1.0-4.8) k/uL Monocytes # (0-1.0) k/uL Eosinophils # (0-0.7) k/uL Basophils # (0-0.2) k/uL Sodium (137-145) mmol/L Potassium (3.5-5.1) mmol/L Chloride (98-107) mmol/L Carbon Dioxide (22-30) mmol/L Anion Gap mmol/L BUN (9-20) mg/dL Creatinine (0.66-1.25) mg/dL Est GFR (CKD-EPI)AfAm (>60 ml/min/1.73 sqM) Est GFR (CKD-EPI)NonAf (>60 ml/min/1.73 sqM) Glucose (74-99) mg/dL Plasma Lactic Acid [place] 0.6 L (0.7-2.0) mmol/L Calcium (8.4-10.2) mg/dL Total Bilirubin (0.2-1.3) mg/dL AST (17-59) U/L ALT (4-49) U/L Alkaline Phosphatase (38-126) U/L Troponin I <0.012 (0.000-0.034) ng/mL Total Protein (6.3-8.2) g/dL Albumin (3.5-5.0) g/dL Lipase (23-300) U/L Urine Color Urine Appearance (Clear) Urine pH (5.0-8.0) Ur Specific [place] (1.001-1.035) Urine Protein (Negative) Urine Glucose (UA) (Negative) Urine Ketones (Negative) Urine Blood (Negative) Urine Nitrite (Negative) Urine Bilirubin (Negative) Urine Urobilinogen (<2.0) mg/dL Ur Leukocyte Esterase (Negative) - EKG Data -: EKG Interpreted by Me (and Dr. Moctezuma.) EKG Comments: Ventricular rate 60, OH interval 156, QRS 106, QT/QTC 396/96. Normal sinus rhythm with sinus arrhythmia. Left anterior fascicular block. No concern for acute ischemia at this time. Disposition Clinical Impression: Abdominal pain, Enlarged prostate Disposition: HOME SELF-CARE Condition: Stable Instructions (If sedation given, give patient instructions): Abdominal Pain (ED) Additional Instructions: Follow-up with primary care provider as well as your surgeon tomorrow. Return to ER if any worsening symptoms. Is patient prescribed a controlled substance at d/c from ED?: No Referrals: Stefano Cano MD [Primary Care Provider] - 1-2 days
[2020-03-16 19:42] LABS: Basophils # (A) 0.1 k/uL (0-0.2); Basophils % (A) 1 %; Eosinophils # (A) 0.3 k/uL (0-0.7); Eosinophils % (A) 4 %; HCT 48.9 % (39.0-53.0); HGB 16.3 gm/dL (13.0-17.5); Lymphocytes # (A) 1.9 k/uL (1.0-4.8); Lymphocytes % (A) 25 %; MCH 31.4 pg (25.0-35.0); MCHC 33.3 g/dL (31.0-37.0); MCV 94.4 fL (80.0-100.0); Mean Platelet Volume 7.8; Monocytes # (A) 0.4 k/uL (0-1.0); Monocytes % (A) 5 %; Neutrophils # (A) 4.9 k/uL (1.3-7.7); Neutrophils % (A) 64 %; Platelet Count 205 k/uL (150-450); RBC 5.18 m/uL (4.30-5.90); RDW 12.8 % (11.5-15.5); WBC 7.7 k/uL (3.8-10.6)
[2020-03-16] MEDS ORDERED: SODIUM CHLORIDE 0.9% 1,000 ML IV ONE (19:50)
[2020-03-16 19:52] LABS: ALT 15 U/L (4-49); AST 22 U/L (17-59); African American GFR (CKD) >90 (>60 ml/min/1.73 sqM); Albumin 4.4 g/dL (3.5-5.0); Alkaline Phosphatase 64 U/L (38-126); Anion Gap 4 mmol/L; Blood Urea Nitrogen 13 mg/dL (9-20); Calcium 9.3 mg/dL (8.4-10.2); Carbon Dioxide 28 mmol/L (22-30); Chloride 104 mmol/L (98-107); Glucose 93 mg/dL (74-99); Non-African American GFR(CKD) >90 (>60 ml/min/1.73 sqM); Potassium 4.1 mmol/L (3.5-5.1); Sodium 136 mmol/L (137-145); Total Bilirubin 0.7 mg/dL (0.2-1.3); Total Protein 6.6 g/dL (6.3-8.2)
--- NOTE | 2020-03-16 20:30 | CT ---
EXAMINATION TYPE: CT abdomen pelvis w con DATE OF EXAM: 03/16/2020 COMPARISON: 03/14/2019 INDICATION: Generalized abdominal pain and diarrhea. DLP: 957.6 mGycm, Automated exposure control for dose reduction was used. CONTRAST: 100ml mL of Isovue 300. Study performed without Oral Contrast TECHNIQUE: Axial images were obtained from above the diaphragm to the pubic rami in the axial plane a t 5 mm thick sections. Reconstructed images are reviewed on the computer in the coronal plane. FINDINGS: Limited CT sections are obtained the lung bases. The lung bases are clear. CT ABDOMEN: There is a very broad anterior abdominal wall hernia containing loops of colon. No obstru ction is evident Liver: There is a small hypodensity within the right posterior lateral tip of the liver measuring 0.7 cm. Tiny cyst. Spleen: Normal Pancreas: Normal Adrenal glands: The adrenal glands are normal. Gallbladder: Surgically absent Kidneys: No masses are evident. No hydronephrosis is present. No cysts are present. Delayed images were obtained through the kidneys, which remain unremarkable. Aorta: Normal Vascular calcification is within the aorta. Inferior vena cava: Normal. CT PELVIS: Loops of bowel within the abdomen and pelvis are normal. The studies performed without oral contr ast limiting bowel evaluation. Appendix: Not identified. No suspicious tubular structures or inflammatory changes are evident Urinary bladder: Normal. Genitourinary structures: Prostate is prominent. Some prostate calcifications are present Osseous structures: No suspicious lytic or sclerotic lesions. IMPRESSIONS: 1. Prostate hypertrophy. 2. Very broad anterior abdominal wall hernia containing nonobstructed loops of colon.
[2020-03-16 21:28] VITALS: BP 135/95; PULSE 60; TEMP 97.9
== END 2020-03-16 21:36 | disposition home or self-care (01) ==
LOC: EC 18:48
DX: N40.0 Benign prostatic hyperplasia without lower urinary tract symptoms (principal); R10.9 Unspecified abdominal pain; K46.9 Unspecified abdominal hernia without obstruction or gangrene; R19.7 Diarrhea, unspecified; I10 Essential (primary) hypertension; R11.0 Nausea; F17.200 Nicotine dependence, unspecified, uncomplicated; Z79.899 Other long term (current) drug therapy; Z90.49 Acquired absence of other specified parts of digestive tract
CPT/HCPCS: 36415; 93005; 80053; 83605; 83690; 84484; 85025; 81003; 74177; 96360; 96361; 99285; Q9967

== ENCOUNTER 2020-04-20 08:11 | Day surgery (SDC) | payer MEDICARE, OTHER ==
[2020-04-17 13:00] VITALS: BMI 26.4
[~2020-04-20 08:11] MED LIST: LACTATED RINGERS 1,000 ML IV SCH; LIDOCAINE 1% (10MG/ML) FOR IV START INTRADERMA PRN
[2020-04-20 08:30] VITALS: RESP 18; TEMP 97.7
--- NOTE | 2020-04-20 09:21 | P.GSHP ---
History of Present Illness H&P Date: 04/20/20 Chief Complaint: Screening colonoscopy Is a 39-year-old male presents today for screening colonoscopy. Patient denies a significant GI complaints. Past Medical History Past Medical History: Hypertension, Osteoarthritis (OA) Additional Past Medical History / Comment(s): hx migraines, occ diarrhea, hx bowel obstruction, scoliosis, History of Any Multi-Drug Resistant Organisms: None Reported Past Surgical History: Appendectomy, Bowel Resection, Cholecystectomy, Hernia Repair, Orthopedic Surgery Additional Past Surgical History / Comment(s): 02/14/19 laparotomy small bowel resection with lysis of adhesions, left great toe tendon surgery as a child, hiatal hernia repair, asia inguinal hernia repair, Past Anesthesia/Blood Transfusion Reactions: Motion Sickness Smoking Status: Current every day smoker - Past Family History Mother Family Medical History: No Reported History Father Family Medical History: Diabetes Mellitus Medications and Allergies Home Medications Medication Instructions Recorded Confirmed Type Nebivolol [Bystolic] 5 mg PO QAM 05/12/15 04/20/20 History Fluticasone/Vilanterol [Breo 1 puff INHALATION RT-DAILY 08/13/15 04/20/20 History Ellipta 100-25 Mcg Inhaler] HYDROcodone/APAP 10-325MG [[place] 1 tab PO TID PRN 08/13/15 04/20/20 History 10-325] ALPRAZolam [ALPRAZolam XR] 0.5 mg PO DAILY PRN 03/16/20 04/20/20 History Dicyclomine [Bentyl] 10 mg PO TID-W/MEALS 04/17/20 04/20/20 History Allergies Allergy/AdvReac Type Severity Reaction Status Date / Time No Known Allergies Allergy Verified 04/20/20 08:26 Surgical - Exam Vital Signs Temp Pulse Resp BP Pulse Ox 97.7 F 83 18 147/72 97 04/20/20 08:29 04/20/20 08:29 04/20/20 08:29 04/20/20 08:29 04/20/20 08:29 - General well developed, well nourished, no distress - Eyes PERRL - ENT normal pinna - Neck no masses - Respiratory normal expansion - Cardiovascular Rhythm: regular - Abdomen Abdomen: soft, non tender Assessment and Plan Assessment: We'll perform screening colonoscopy
[2020-04-20] MEDS ORDERED: PROPOFOL 10 MG/ML 20 ML VIAL IV ONE (09:31)
--- NOTE | 2020-04-20 09:48 | P.OP ---
Date of Procedure: 04/20/20 Preoperative Diagnosis: GI bleed Diarrhea Postoperative Diagnosis: Internal hemorrhoids Normal colon Procedure(s) Performed: Colonoscopy Anesthesia: MAC Surgeon: Cosmo Lyon Pathology: other (Rectum) Condition: stable Disposition: PACU Description of Procedure: The patient's placed on the endoscopy table lateral position. He received IV sedation. Digital rectal exam performed which revealed internal hemorrhoids. Flexible colonoscope was then placed patient anus passed throughout the entire colon. The ileocecal valve was visualized. Cecum, ascending and transverse colon appeared all. The descending and sigmoid colon appeared normal. Scope was brought back the rectum and this appeared normal. Due to the patient's symptoms of diarrhea random rectal biopsies performed. There is no inflammatory changes. The scope was withdrawn for patient.
[2020-04-20] MEDS ORDERED: LACTATED RINGERS 1,000 ML IV ONE (09:50)
[2020-04-20] MEDS ORDERED: IV FLUID CONTINUATION 1,000 ML IV ONE (09:50)
[2020-04-20 10:03] VITALS: BP 120/80; PULSE 75
== END 2020-04-20 10:21 | disposition home or self-care (01) ==
LOC: ORWHC2ENDO 08:11
PROVIDERS: ATTEND Surgery
DX: K64.8 Other hemorrhoids (principal); R19.7 Diarrhea, unspecified; I10 Essential (primary) hypertension; M19.90 Unspecified osteoarthritis, unspecified site; M41.9 Scoliosis, unspecified; F17.210 Nicotine dependence, cigarettes, uncomplicated; F41.9 Anxiety disorder, unspecified; Z86.69 Personal history of other diseases of the nervous system and sense organs; Z87.19 Personal history of other diseases of the digestive system; Z98.890 Other specified postprocedural states; Z90.49 Acquired absence of other specified parts of digestive tract; Z87.39 Personal history of other diseases of the musculoskeletal system and connective tissue; Z87.898 Personal history of other specified conditions; Z83.3 Family history of diabetes mellitus; Z79.899 Other long term (current) drug therapy; Z79.51 Long term (current) use of inhaled steroids; Z79.891 Long term (current) use of opiate analgesic; Z97.2 Presence of dental prosthetic device (complete) (partial)
CPT/HCPCS: 88305; 45380; J2704

== ENCOUNTER 2020-09-17 08:41 | Emergency (ER) | payer MEDICARE, OTHER ==
[2020-09-17 08:45] VITALS: RESP 18; TEMP 98.2
[2020-09-17] MEDS ORDERED: SODIUM CHLORIDE 0.9% 500 ML 500 ML IV STA (09:01)
--- NOTE | 2020-09-17 09:04 | ED ---
General Adult HPI - General Chief complaint: Neck Pain/Injury Stated complaint: ENT Time Seen by Provider: 09/17/20 08:48 Source: patient, RN notes reviewed Mode of arrival: ambulatory Limitations: no limitations - History of Present Illness Initial comments: Patient is a pleasant 39-year-old male presenting to the emergency department with discomfort of the right side of his neck. Symptoms have started over a month ago. Patient has been placed on antibiotics twice without improvement of symptoms. Patient states there is some mild discomfort with swallowing. No dyspnea. Area of discomfort is right lateral neck below the jawline. No history of similar symptoms previously. Patient is a smoker but trying to quit. - Related Data Home Medications Medication Instructions Recorded Confirmed Nebivolol [Bystolic] 5 mg PO DAILY 05/12/15 09/17/20 Fluticasone/Vilanterol [Breo 1 puff INHALATION RT-DAILY 08/13/15 09/17/20 Ellipta 100-25 Mcg Inhaler] HYDROcodone/APAP 10-325MG [[place] 1 tab PO Q8H PRN 08/13/15 09/17/20 10-325] Dicyclomine [Bentyl] 10 mg PO TID-W/MEALS PRN 04/17/20 09/17/20 ALPRAZolam [Xanax] 0.5 mg PO DAILY PRN 09/17/20 09/17/20 Amoxic-Pot Clav 875-125Mg 1 tab PO Q12H 09/17/20 09/17/20 [Augmentin 875-125] Fluticasone Nasal [place] [Flonase 1 spr EA NOSTRIL DAILY 09/17/20 09/17/20 Nasal [place]] Allergies Allergy/AdvReac Type Severity Reaction Status Date / Time No Known Allergies Allergy Verified 09/17/20 09:50 Review of Systems ROS Statement: Those systems with pertinent positive or pertinent negative responses have been documented in the HPI. ROS Other: All systems not noted in ROS Statement are negative. Constitutional: Denies: fever Eyes: Denies: eye pain ENT: Denies: ear pain Respiratory: Denies: cough, dyspnea Cardiovascular: Denies: chest pain Endocrine: Denies: fatigue Gastrointestinal: Denies: abdominal pain Genitourinary: Denies: dysuria Musculoskeletal: Denies: back pain Skin: Denies: rash Neurological: Denies: weakness Past Medical History Past Medical History: Hypertension, Osteoarthritis (OA) Additional Past Medical History / Comment(s): hx migraines, occ diarrhea, hx bowel obstruction, scoliosis, History of Any Multi-Drug Resistant Organisms: None Reported Past Surgical History: Appendectomy, Bowel Resection, Cholecystectomy, Hernia Repair, Orthopedic Surgery Additional Past Surgical History / Comment(s): 02/14/19 laparotomy small bowel resection with lysis of adhesions, left great toe tendon surgery as a child, hiatal hernia repair, asia inguinal hernia repair, Past Anesthesia/Blood Transfusion Reactions: Motion Sickness Past Psychological History: Anxiety Smoking Status: Former smoker Past Alcohol Use History: Occasional Past Drug Use History: None Reported - Past Family History Mother Family Medical History: No Reported History Father Family Medical History: Diabetes Mellitus General Exam Limitations: no limitations General appearance: alert, in no apparent distress Head exam: Present: normocephalic Eye exam: Present: normal appearance, PERRL ENT exam: Present: normal oropharynx Neck exam: Present: tenderness (Patient does have area of tenderness right superior sternal mastoid muscle just below the angle of the jaw. No significant swelling in this area. There is some mild nontender non-inflamed lymph nodes near here.), full ROM. Absent: meningismus Respiratory exam: Present: normal lung sounds bilaterally Cardiovascular Exam: Present: regular rate, normal rhythm Extremities exam: Present: normal inspection Neurological exam: Present: alert, CN II-XII intact Psychiatric exam: Present: normal affect, normal mood Skin exam: Present: normal color Course Vital Signs 09/17/20 08:42 Temperature 98.2 F Pulse Rate 64 Respiratory 18 Rate Blood Pressure 139/75 O2 Sat by Pulse 99 Oximetry Medical Decision Making - Medical Decision Making Patient reevaluated and updated. Patient also updated on need for follow-up with ENT or to return if symptoms worsen - Lab Data Result diagrams: 09/17/20 09:10 09/17/20 09:10 Lab Results 09/17/20 09/17/20 Range/Units 09:10 09:10 WBC 7.2 (3.8-10.6) k/uL RBC 5.25 (4.30-5.90) m/uL Hgb 17.1 (13.0-17.5) gm/dL Hct 49.1 (39.0-53.0) % MCV 93.4 (80.0-100.0) fL MCH 32.6 (25.0-35.0) pg MCHC 34.9 (31.0-37.0) g/dL RDW 12.5 (11.5-15.5) % Plt Count 191 (150-450) k/uL MPV 7.8 Neutrophils % 72 % Lymphocytes % 20 % Monocytes % 5 % Eosinophils % 2 % Basophils % 0 % Neutrophils # 5.2 (1.3-7.7) k/uL Lymphocytes # 1.5 (1.0-4.8) k/uL Monocytes # 0.3 (0-1.0) k/uL Eosinophils # 0.2 (0-0.7) k/uL Basophils # 0.0 (0-0.2) k/uL Sodium 137 (137-145) mmol/L Potassium 4.0 (3.5-5.1) mmol/L Chloride 105 (98-107) mmol/L Carbon Dioxide 26 (22-30) mmol/L Anion Gap 6 mmol/L BUN 22 H (9-20) mg/dL Creatinine 0.96 (0.66-1.25) mg/dL Est GFR (CKD-EPI)AfAm >90 (>60 ml/min/1.73 sqM) Est GFR (CKD-EPI)NonAf >90 (>60 ml/min/1.73 sqM) Glucose 120 H (74-99) mg/dL Calcium 9.2 (8.4-10.2) mg/dL - Radiology Data Radiology results: image reviewed (Computed tomography scan of soft tissue neck reveals no acute abnormality) Disposition Clinical Impression: Neck pain Disposition: HOME SELF-CARE Condition: Stable Instructions (If sedation given, give patient instructions): Acute Neck Pain (ED) Additional Instructions: Please follow-up with primary care physician in the next day or 2 for recheck. Please also follow-up with your nose and throat, number provided. Return for increased pain, fever, swelling, worsening or changing symptoms or other concerns. Continue antibiotics as directed. Is patient prescribed a controlled substance at d/c from ED?: No Referrals: Stefano Cano MD [Primary Care Provider] - 1-2 days Leo Love DO [Doctor of Osteopathic Medicine] - 1-2 days Time of Disposition: 10:17
[2020-09-17 09:26] LABS: Basophils % (A) 0 %; Eosinophils # (A) 0.2 k/uL (0-0.7); Eosinophils % (A) 2 %; HCT 49.1 % (39.0-53.0); HGB 17.1 gm/dL (13.0-17.5); Lymphocytes # (A) 1.5 k/uL (1.0-4.8); Lymphocytes % (A) 20 %; MCH 32.6 pg (25.0-35.0); MCHC 34.9 g/dL (31.0-37.0); MCV 93.4 fL (80.0-100.0); Mean Platelet Volume 7.8; Monocytes # (A) 0.3 k/uL (0-1.0); Monocytes % (A) 5 %; Neutrophils # (A) 5.2 k/uL (1.3-7.7); Neutrophils % (A) 72 %; Platelet Count 191 k/uL (150-450); RBC 5.25 m/uL (4.30-5.90); RDW 12.5 % (11.5-15.5); WBC 7.2 k/uL (3.8-10.6)
[2020-09-17 09:31] LABS: African American GFR (CKD) >90 (>60 ml/min/1.73 sqM); Anion Gap 6 mmol/L; Blood Urea Nitrogen 22 mg/dL (9-20); Calcium 9.2 mg/dL (8.4-10.2); Carbon Dioxide 26 mmol/L (22-30); Chloride 105 mmol/L (98-107); Glucose 120 mg/dL (74-99); Non-African American GFR(CKD) >90 (>60 ml/min/1.73 sqM); Sodium 137 mmol/L (137-145)
--- NOTE | 2020-09-17 10:07 | CT ---
EXAMINATION TYPE: CT soft tissue neck w con DATE OF EXAM: 09/17/2020 HISTORY: Rt sided neck pain, pain with talking COMPARISON: CT cervical spine October 03, 2016. MRI cervical spine September 21, 2010 CT DLP: 333.3 mGycm. Automated Exposure Control for Dose Reduction was Utilized. TECHNIQUE: CT scan of the neck is performed with IV Contrast, patient injected with 100 mL of Isovue 300, axial images are obtained, coronal and sagittal reformatted images are reviewed. FINDINGS: Airway: No gross abnormality seen. Parotid/submandibular glands: No gross abnormality seen. Carotid/Vascular Structures: No significant plaque or stenosis at carotid bulb level bilaterally. Osseous Structures: Underlying levoconvex scoliosis centered upper thoracic spine is redemonstrated Other: Stable few scattered subcentimeter lymph nodes throughout the neck bilaterally. No definitive abnormal greater than 1 cm neck adenopathy. IMPRESSION: No significant acute abnormality is seen.
[2020-09-17 10:32] VITALS: BP 118/80; PULSE 57
== END 2020-09-17 11:08 | disposition home or self-care (01) ==
LOC: EC 08:41
DX: M54.2 Cervicalgia (principal); F41.9 Anxiety disorder, unspecified; I10 Essential (primary) hypertension; M19.90 Unspecified osteoarthritis, unspecified site; Z79.899 Other long term (current) drug therapy; Z87.891 Personal history of nicotine dependence
CPT/HCPCS: 36415; 80048; 85025; 70491; 99284; Q9967

== ENCOUNTER 2022-11-11 08:50 | Observation (INO) | payer MEDICARE, OTHER ==
[2022-11-11 08:58] VITALS: TEMP 98.4
[2022-11-11] MEDS ORDERED: NITROGLYCERIN OINT 1 INCH/GM PACKET TOPICAL STA (09:32)
[2022-11-11] MEDS ORDERED: ASPIRIN 81 MG PO STA (09:32)
--- NOTE | 2022-11-11 09:36 | ED ---
General Adult HPI - General Chief complaint: Chest Pain Stated complaint: chest pain Time Seen by Provider: 11/11/22 09:00 Source: patient, RN notes reviewed, old records reviewed Mode of arrival: ambulatory Limitations: no limitations - History of Present Illness Initial comments: This is a 41-year-old male who presents emergency Department complaining of chest pain since last night. Patient states there is some pain in the left arm there is some mild shortness of breath and he states that he was dizzy when he came to the hospital. Patient also states he had a minor sweating episode last night. Patient states he has pain with palpation and it does hurt to take deep breath. Patient also states that he didn't deep breath increases the pain. Patient states that a little bit of cough but no sputum production. Patient denies any fever chills. Patient denies any abdominal pain patient is not vomiting diarrhea. Patient denies any heavy lifting or moving lately. - Related Data Home Medications Medication Instructions Recorded Confirmed Nebivolol [Bystolic] 5 mg PO DAILY 05/12/15 11/11/22 Fluticasone/Vilanterol [Breo 1 puff INHALATION RT-DAILY 08/13/15 11/11/22 Ellipta 100-25 Mcg Inhaler] HYDROcodone/APAP 10-325MG [[place] 1 tab PO BID 08/13/15 11/11/22 10-325] ALPRAZolam [Xanax] 0.25 mg PO BID 09/17/20 11/11/22 Omeprazole [PriLOSEC] 40 mg PO DAILY 11/11/22 11/11/22 valACYclovir HCL [Valtrex] 500 mg PO DAILY 11/11/22 11/11/22 Allergies Allergy/AdvReac Type Severity Reaction Status Date / Time No Known Allergies Allergy Verified 11/11/22 09:58 Review of Systems ROS Statement: Those systems with pertinent positive or pertinent negative responses have been documented in the HPI. ROS Other: All systems not noted in ROS Statement are negative. Past Medical History Past Medical History: Hypertension, Osteoarthritis (OA) Additional Past Medical History / Comment(s): hx migraines, occ diarrhea, hx bowel obstruction, scoliosis, History of Any Multi-Drug Resistant Organisms: None Reported Past Surgical History: Appendectomy, Bowel Resection, Cholecystectomy, Hernia Repair, Orthopedic Surgery Additional Past Surgical History / Comment(s): 02/14/19 laparotomy small bowel resection with lysis of adhesions, left great toe tendon surgery as a child, hiatal hernia repair, asia inguinal hernia repair, Past Anesthesia/Blood Transfusion Reactions: Motion Sickness Past Psychological History: Anxiety Smoking Status: Former smoker Past Alcohol Use History: Occasional Past Drug Use History: None Reported - Past Family History Mother Family Medical History: No Reported History Father Family Medical History: Diabetes Mellitus General Exam - General Exam Comments Initial Comments: GENERAL: Patient is well-developed and well-nourished. Patient is nontoxic and well- hydrated and is in mild distress ENT: Neck is soft and supple. No significant lymphadenopathy is noted. Oropharynx is clear. Moist mucous membranes. Neck has full range of motion without eliciting any pain. EYES: The sclera were anicteric and conjunctiva were pink and moist. Extraocular movements were intact and pupils were equal round and reactive to light. Eyelids were unremarkable. PULMONARY: Unlabored respirations. Good breath sounds bilaterally. No audible rales rh onchi or wheezing was noted. CARDIOVASCULAR: There is a regular rate and rhythm without any murmurs gallops or rubs. ABDOMEN: Soft and nontender with normal bowel sounds. No palpable organomegaly was noted. There is no palpable pulsatile mass. SKIN: Skin is clear with no lesions or rashes and otherwise unremarkable. NEUROLOGIC: Patient is alert and oriented x3. Cranial nerves II through XII are grossly intact. Motor and sensory are also intact. Normal speech, volume and content. Symmetrical smile. MUSCULOSKELETAL: Normal extremities with adequate strength and full range of motion. LYMPHATICS: No significant lymphadenopathy is noted PSYCHIATRIC: Normal psychiatric evaluation. N Limitations: no limitations Course Vital Signs 11/11/22 11/11/22 11/11/22 08:55 10:52 12:04 Temperature 98.4 F Pulse Rate 60 57 L 59 L Respiratory 18 18 18 Rate Blood Pressure 119/86 110/77 109/76 O2 Sat by Pulse 96 98 97 Oximetry Medical Decision Making - Medical Decision Making EKG shows sinus rhythm at 60 bpm AK interval 147 QRS is 104 QT interval 381 QTC is 381. Patient's EKG shows no ST segment elevation or depression. Second EKG was done because the patient continued to have chest pain. It was interpreted by myself shows a sinus bradycardia 56 bpm AK interval 133 QRS is 98 QT interval 392 QTC is 33. Patient's EKG shows no ST segment elevation or depression. Was pt. sent in by a medical professional or institution (, [facility], [employer], urgent care, hospital, or [facility]...) When possible be specific @ -[No] Did you speak to anyone other than the patient for history (EMS, parent, family, police, friend...)? What history was obtained from this source @ -[No] Did you review nursing and triage notes (agree or disagree)? Why? @ -[I reviewed and agree with nursing and triage notes] Were old charts reviewed (outside hosp., previous admission, EMS record, old EKG, old radiological studies, urgent care reports/EKG's, [facility] records)? Report findings @ -[No old charts were reviewed] Differential Diagnosis (chest pain, altered mental status, abdominal pain women, abdominal pain men, vaginal bleeding, weakness, fever, dyspnea, syncope, headache, dizziness, GI bleed, back pain, seizure, CVA, palpatations, mental health, musculoskeletal)? @ -Differential Chest Pain: Stable Angina, Unstable Angina, STEMI, NSTEMI Aortic Dissection, Pneumothorax, Musculoskeletal, Esophageal Spasm GERD, Cholecystitis, Pancreatitis, Zoster, th is is not meant to be an all-inclusive list. EKG interpreted by me (3pts min.). @ -[As above] X-rays interpreted by me (1pt min.). @ -I interpreted the chest x-ray myself I see no acute abnormalities CT interpreted by me (1pt min.). @ -[None done] U/S interpreted by me (1pt. min.). @ -[None done] What testing was considered but not performed or refused? (CT, X-rays, U/S, labs)? Why? @ -[None] What meds were considered but not given or refused? Why? @ -[None] Did you discuss the management of the patient with other professionals ( professionals i.e. , [facility], [employer], lab, RT, psych nurse, geriatric social work professor, vat packer, teacher, [employer] gunfire liaison officer, case worker)? Give summary @ -[No] Was smoking cessation discussed for >3mins.? @ -[No] Was critical care preformed (if so, how long)? @ -[No] Were there social determinants of health that impacted care today? How? (Homelessness, low income, unemployed, alcoholism, drug addiction, t ransportation, low edu. Level, literacy, decrease access to med. care, snf, rehab)? @ -[No] Was there de-escalation of care discussed even if they declined (Discuss DNR or withdrawal of care, Hospice)? DNR status @ -[No] What co-morbidities impacted this encounter? (DM, HTN, Smoking, COPD, CAD, Cancer, CVA, ARF, Chemo, Hep., AIDS, mental health diagnosis, sleep apnea, morbid obesity)? @ -[None] Was patient admitted / discharged? Hospital course, mention meds given and route, prescriptions, significant lab abnormalities, going to OR and other pertinent info. @ -Patient had more chest pain while in the emergency department I repeated EKG which showed no acute abnormality. Patient was given nitroglycerin which had no effect. Patient still continued to have some chest pain and left arm pain and occasional shortness of breath so I decided to keep the patient spoke with, while he agreed to keep the patient I admitted the patient wrote admitting orders I consulted cardiology Undiagnosed new problem with uncertain prognosis? @ -[No] Drug Therapy requiring intensive monitoring for toxicity (Heparin, Nitro, Insulin, Cardizem)? @ -[No] Were any procedures done? @ -[No] Diagnosis/symptom? @ -Chest pain Acute, or Chronic, or Acute on Chronic? @ -Acute Uncomplicated (without systemic symptoms) or Complicated (systemic symptoms)? @ -Complicated Side effects of treatment? @ -[No] Exacerbation, Progression, or Severe Exacerbation? @ -[No] Poses a threat to life or bodily function? How? (Chest pain, USA, MS, pneumonia, PE, COPD, DKA, ARF, appy, cholecystitis, CVA, Diverticulitis, Homicidal, Suicidal, threat to staff... and all critical care pts) @ -Yes chest pain continued to an MS which could lead to end organ dysfunction - Lab Data Result diagrams: 11/11/22 09:40 11/11/22 09:40 Lab Results 11/11/22 11/11/22 11/11/22 Range/Units 09:40 09:40 09:40 WBC 6.4 (3.8-10.6) k/uL RBC 5.12 (4.30-5.90) m/uL Hgb 16.7 (13.0-17.5) gm/dL Hct 48.7 (39.0-53.0) % MCV 95.1 (80.0-100.0) fL MCH 32.6 (25.0-35.0) pg MCHC 34.2 (31.0-37.0) g/dL RDW 13.4 (11.5-15.5) % Plt Count 219 (150-450) k/uL MPV 8.3 Neutrophils % 62 % Lymphocytes % 26 % Monocytes % 6 % Eosinophils % 4 % Basophils % 0 % Neutrophils # 4.0 (1.3-7.7) k/uL Lymphocytes # 1.6 (1.0-4.8) k/uL Monocytes # 0.4 (0-1.0) k/uL Eosinophils # 0.2 (0-0.7) k/uL Basophils # 0.0 (0-0.2) k/uL PT 10.0 (9.0-12.0) sec INR 0.9 (<1.2) APTT 25.5 (22.0-30.0) sec D-Dimer 0.52 (<0.60) mg/L FEU Sodium 136 L (137-145) mmol/L Potassium 4.3 (3.5-5.1) mmol/L Chloride 104 (98-107) mmol/L Carbon Dioxide 25 (22-30) mmol/L Anion Gap 7 mmol/L BUN 17 (9-20) mg/dL Creatinine 0.84 (0.66-1.25) mg/dL Est GFR (CKD-EPI)AfAm >90 (>60 ml/min/1.73 sqM) Est GFR (CKD-EPI)NonAf >90 (>60 ml/min/1.73 sqM) Glucose 101 H (74-99) mg/dL Calcium 9.2 (8.4-10.2) mg/dL Magnesium 2.1 (1.6-2.3) mg/dL Total Bilirubin 0.6 (0.2-1.3) mg/dL AST 22 (17-59) U/L ALT 21 (4-49) U/L Alkaline Phosphatase 73 (38-126) U/L Troponin I (0.000-0.034) ng/mL Total Protein 6.9 (6.3-8.2) g/dL Albumin 4.2 (3.5-5.0) g/dL Influenza Type A (PCR) (Not Detectd) Influenza Type B (PCR) (Not Detectd) RSV (PCR) (Not Detectd) SARS-CoV-2 (PCR) (Not Detectd) 11/11/22 11/11/22 Range/Units 09:40 10:47 WBC (3.8-10.6) k/uL RBC (4.30-5.90) m/uL Hgb (13.0-17.5) gm/dL Hct (39.0-53.0) % MCV (80.0-100.0) fL MCH (25.0-35.0) pg MCHC (31.0-37.0) g/dL RDW (11.5-15.5) % Plt Count (150-450) k/uL MPV Neutrophils % % Lymphocytes % % Monocytes % % Eosinophils % % Basophils % % Neutrophils # (1.3-7.7) k/uL Lymphocytes # (1.0-4.8) k/uL Monocytes # (0-1.0) k/uL Eosinophils # (0-0.7) k/uL Basophils # (0-0.2) k/uL PT (9.0-12.0) sec INR (<1.2) APTT (22.0-30.0) sec D-Dimer (<0.60) mg/L FEU Sodium (137-145) mmol/L Potassium (3.5-5.1) mmol/L Chloride (98-107) mmol/L Carbon Dioxide (22-30) mmol/L Anion Gap mmol/L BUN (9-20) mg/dL Creatinine (0.66-1.25) mg/dL Est GFR (CKD-EPI)AfAm (>60 ml/min/1.73 sqM) Est GFR (CKD-EPI)NonAf (>60 ml/min/1.73 sqM) Glucose (74-99) mg/dL Calcium (8.4-10.2) mg/dL Magnesium (1.6-2.3) mg/dL Total Bilirubin (0.2-1.3) mg/dL AST (17-59) U/L ALT (4-49) U/L Alkaline Phosphatase (38-126) U/L Troponin I <0.012 (0.000-0.034) ng/mL Total Protein (6.3-8.2) g/dL Albumin (3.5-5.0) g/dL Influenza Type A (PCR) Not Detected (Not Detectd) Influenza Type B (PCR) Not Detected (Not Detectd) RSV (PCR) Not Detected (Not Detectd) SARS-CoV-2 (PCR) Not Detected (Not Detectd) Disposition Clinical Impression: Chest pain Disposition: ADMITTED IP TO THIS HOSP Referrals: Stefano Cano MD [Primary Care Provider] - 1-2 days Time of Disposition: 12:24
[2022-11-11 09:52] LABS: Basophils % (A) 0 %; Eosinophils # (A) 0.2 k/uL (0-0.7); Eosinophils % (A) 4 %; HCT 48.7 % (39.0-53.0); HGB 16.7 gm/dL (13.0-17.5); Lymphocytes # (A) 1.6 k/uL (1.0-4.8); Lymphocytes % (A) 26 %; MCH 32.6 pg (25.0-35.0); MCHC 34.2 g/dL (31.0-37.0); MCV 95.1 fL (80.0-100.0); Mean Platelet Volume 8.3; Monocytes # (A) 0.4 k/uL (0-1.0); Monocytes % (A) 6 %; Neutrophils % (A) 62 %; Platelet Count 219 k/uL (150-450); RBC 5.12 m/uL (4.30-5.90); RDW 13.4 % (11.5-15.5); WBC 6.4 k/uL (3.8-10.6)
[2022-11-11 10:08] LABS: ALT 21 U/L (4-49); AST 22 U/L (17-59); African American GFR (CKD) >90 (>60 ml/min/1.73 sqM); Albumin 4.2 g/dL (3.5-5.0); Alkaline Phosphatase 73 U/L (38-126); Anion Gap 7 mmol/L; Blood Urea Nitrogen 17 mg/dL (9-20); Calcium 9.2 mg/dL (8.4-10.2); Carbon Dioxide 25 mmol/L (22-30); Chloride 104 mmol/L (98-107); Glucose 101 mg/dL (74-99); Magnesium 2.1 mg/dL (1.6-2.3); Non-African American GFR(CKD) >90 (>60 ml/min/1.73 sqM); Potassium 4.3 mmol/L (3.5-5.1); Sodium 136 mmol/L (137-145); Total Bilirubin 0.6 mg/dL (0.2-1.3); Total Protein 6.9 g/dL (6.3-8.2)
--- NOTE | 2022-11-11 10:20 | XR ---
EXAMINATION TYPE: XR chest 2V DATE OF EXAM: 11/11/2022 COMPARISON: 07/09/2018 TECHNIQUE: PA and lateral views submitted. HISTORY: Chest pain FINDINGS: The lungs are clear and there is no pneumothorax, pleural effusion, or focal pneumonia. Heart size normal and no overt failure. Osseous structures demonstrate hypertrophic and degenerative changes of the spine. Hypertrophic and degenerative changes of the spine. Surgical clips in the abdomen. IMPRESSION: 1. No acute process.
[2022-11-11 10:26] LABS: INR 0.9 (<1.2); Partial Thromboplastin Time 25.5 sec (22.0-30.0)
[2022-11-11] MEDS ORDERED: NITROGLYCERIN SL TABS 0.4 MG TAB SUBLINGUAL PRN ×2 (10:48→12:25)
[2022-11-11 14:22] VITALS: BP 109/67
[2022-11-11 15:18] VITALS: PULSE 63; RESP 18
[2022-11-11] MEDS ORDERED: NITROGLYCERIN OINT 1 INCH/GM PACKET TOPICAL SCH (18:00)
[2022-11-11] MEDS ORDERED: RX INFO: IV CONTRAST WAS GIVEN 1 EACH MISC MISCELLANE PRN (18:49)
[2022-11-11] MEDS ORDERED: HYDROcodone/APAP 10-325MG 1 EACH TAB PO SCH (21:00)
[2022-11-11] MEDS ORDERED: ALPRAZolam 0.25 MG TAB PO SCH (21:00)
--- NOTE | 2022-11-12 00:13 | HP ---
HISTORY AND PHYSICAL HISTORY OF PRESENT ILLNESS: The patient came in the hospital with atypical chest pain. He is a 41-year-old white male from chest pain, some pain in his left arm, mild shortness of breath. He gets dizzy, came to the hospital, he had some sweating. He has some pain with palpation. It does hurt when he takes a deep breath which increases his pain. He has a little cough but no sputum. No fever or chills. No abdominal pain, nausea, or vomiting. MEDICINES: 1. Bystolic 5 mg daily. 2. Breo Ellipta 1 puff daily. 3. [place] 10 b.i.d. 4. Xanax 0.25 b.i.d. 5. Prilosec 40 mg daily. 6. Valtrex 500 daily. ALLERGIES: None. REVIEW OF SYSTEMS: A 14-point review of systems otherwise negative. PAST MEDICAL HISTORY: Hypertension, osteoarthritis, history of migraines. PAST SURGICAL HISTORY: Appendectomy, bowel resection, cholecystectomy, hernia repair. He had laparotomy due to torsion of his bowel intussusception. PAST MEDICAL HISTORY: History of anxiety, motion sickness, former smoker. FAMILY HISTORY: Father, diabetes mellitus. PHYSICAL EXAMINATION: VITAL SIGNS: Reviewed. Temperature 98.4, pulse 50s to 60s, O2 96 to 97, respiratory rate 18 to 20, blood pressure is 110 to 119 over 70s to 80s. HEENT: Normocephalic, atraumatic. Pupils equal, round, reactive. LUNGS: Clear. CARDIOVASCULAR: Regular rate and rhythm without any murmurs, rubs, or gallops. ABDOMEN: Soft and nontender. SKIN: Warm and dry. No rash. excoriation, or bruising. NEUROLOGIC: Cranial nerves intact. PSYCH: Fair mood and affect. LYMPHS: No lymphadenopathy. EKG shows sinus bradycardia, no ST-T changes. ASSESSMENT: Atypical chest pain. We will do a D-dimer, CT scan of his chest, get Cardiology see him to rule out cardiac disease. Prognosis is guarded. MMODL / IJN: [id number] /
[2022-11-12] MEDS ORDERED: PANTOPRAZOLE 40 MG TABLET PO SCH (07:30)
[2022-11-12] MEDS ORDERED: SYMBICORT 80-4.5 MCG INHALER INHALATION SCH (08:00)
[2022-11-12] MEDS ORDERED: ASPIRIN 81 MG PO SCH (09:00)
[2022-11-12] MEDS ORDERED: ASPIRIN 325 MG TAB PO SCH (09:00)
[2022-11-12] MEDS ORDERED: NEBIVOLOL 5 MG TAB PO SCH (09:00)
[2022-11-12] MEDS ORDERED: valACYclovir HCL 500 MG TAB PO SCH (09:00)
== END 2022-11-11 19:06 | disposition left against medical advice (07) ==
LOC: EC 08:50 → 6NMEDSUR 12:25
PROVIDERS: ADMIT Family Medicine; ATTEND Family Medicine
DX: R07.89 Other chest pain (principal); M79.602 Pain in left arm; R06.02 Shortness of breath; R42 Dizziness and giddiness; R61 Generalized hyperhidrosis; R05.9 Cough, unspecified; R00.1 Bradycardia, unspecified; I10 Essential (primary) hypertension; M19.90 Unspecified osteoarthritis, unspecified site; G43.909 Migraine, unspecified, not intractable, without status migrainosus; M41.9 Scoliosis, unspecified; F41.9 Anxiety disorder, unspecified; Z53.29 Procedure and treatment not carried out because of patient's decision for other reasons; Z20.822 Contact with and (suspected) exposure to COVID-19; Z79.51 Long term (current) use of inhaled steroids; Z79.899 Other long term (current) drug therapy; Z87.19 Personal history of other diseases of the digestive system; Z90.49 Acquired absence of other specified parts of digestive tract; Z98.890 Other specified postprocedural states; Z87.891 Personal history of nicotine dependence; Z83.3 Family history of diabetes mellitus
CPT/HCPCS: 99285; 36415; 93005; 85379; 80053; 83735; 84484; 85025; 85610; 85730; 87636; 71046; G0378

== ENCOUNTER 2024-05-06 21:25 | Emergency (ER) | payer MEDICARE, OTHER ==
[2024-05-06 21:41] VITALS: BP 146/94; PULSE 95; RESP 20; TEMP 98
[2024-05-06] MEDS: DIPH,PERTUS(ACELL)TETVAC-LF 0.5 ML VIAL IM ONE (23:00)
[2024-05-06] MEDS: LIDOCAINE/EPINEPHR/TETRACAINE 5 ML BOTTLE TOPICAL ONE (23:00)
[2024-05-06] MEDS: TOPICAL SKIN ADHESIVE 1 EACH AMP TOPICAL ONE (23:06)
--- NOTE | 2024-05-06 23:56 | ED ---
Wound/Laceration HPI - General Chief Complaint: Wound/Laceration Stated Complaint: L Thumb Laceration Time Seen by Provider: 05/06/24 21:43 Source: patient Mode of arrival: ambulatory Limitations: no limitations - History of Present Illness Initial Comments: 43-year-old male presenting with chief complaint of laceration to left thumb. He was cutting meat when he accidentally cut his thumb with a knife. This is a superficial laceration near the distal tip of the thumb. Unsure when his last tetanus shot was. Bleeding is well-controlled at this time. - Related Data Home Medications Medication Instructions Recorded Confirmed Nebivolol [Bystolic] 5 mg PO DAILY 05/12/15 11/11/22 Fluticasone/Vilanterol [Breo 1 puff INHALATION RT-DAILY 08/13/15 11/11/22 Ellipta 100-25 Mcg Inhaler] HYDROcodone/APAP 10-325MG [[place] 1 tab PO BID 08/13/15 11/11/22 10-325] ALPRAZolam [Xanax] 0.25 mg PO BID 09/17/20 11/11/22 Omeprazole [PriLOSEC] 40 mg PO DAILY 11/11/22 11/11/22 valACYclovir HCL [Valtrex] 500 mg PO DAILY 11/11/22 11/11/22 Allergies Allergy/AdvReac Type Severity Reaction Status Date / Time No Known Allergies Allergy Verified 05/06/24 21:41 Review of Systems ROS Statement: Those systems with pertinent positive or pertinent negative responses have been documented in the HPI. ROS Other: All systems not noted in ROS Statement are negative. Past Medical History Past Medical History: Hypertension, Osteoarthritis (OA) Additional Past Medical History / Comment(s): hx migraines, occ diarrhea, hx bowel obstruction, scoliosis, History of Any Multi-Drug Resistant Organisms: None Reported Past Surgical History: Appendectomy, Bowel Resection, Cholecystectomy, Hernia Repair, Orthopedic Surgery Additional Past Surgical History / Comment(s): 02/14/19 laparotomy small bowel resection with lysis of adhesions, left great toe tendon surgery as a child, hiatal hernia repair, asia inguinal hernia repair, Past Anesthesia/Blood Transfusion Reactions: Motion Sickness Past Psychological History: Anxiety Smoking Status: Former smoker Past Alcohol Use History: Occasional Past Drug Use History: None Reported - Past Family History Mother Family Medical History: No Reported History Father Family Medical History: Diabetes Mellitus General Exam Limitations: no limitations General appearance: alert, in no apparent distress Head exam: Present: atraumatic, normocephalic Eye exam: Present: normal appearance, EOMI Neck exam: Present: normal inspection. Absent: meningismus Respiratory exam: Absent: respiratory distress Cardiovascular Exam: Present: regular rate Neurological exam: Present: alert, oriented X3 Psychiatric exam: Present: normal affect, normal mood Expanded Type of lesion: Present: laceration (L thumb) Course Vital Signs 05/06/24 21:38 Temperature 98.0 F Pulse Rate 95 Respiratory 20 Rate Blood Pressure 146/94 O2 Sat by Pulse 99 Oximetry Procedures - Laceration Laceration #1 Consent Obtained: verbal consent Indication: laceration Site: hand Size (cm): 1 Description: flap Depth: simple, single layer Pre-repair: wound explored Type of Sutures: other (exofin) Patient Tolerated Procedure: well Medical Decision Making - Medical Decision Making Was pt. sent in by a medical professional or institution (, PA, CORPORATE PLANNING MANAGER, urgent care, hospital, or assisted...) When possible be specific @ -No Did you speak to anyone other than the patient for history (EMS, parent, family, police, friend...)? What history was obtained from this source @ -No Did you review nursing and triage notes (agree or disagree)? Why? @ -I reviewed and agree with nursing and triage notes Were old charts reviewed (outside hosp., previous admission, EMS record, old EKG, old radiological studies, urgent care reports/EKG's, assisted records)? Report findings @ -No old charts were reviewed Differential Diagnosis (chest pain, altered mental status, abdominal pain women, abdominal pain men, vaginal bleeding, weakness, fever, dyspnea, syncope, headache, dizziness, GI bleed, back pain, seizure, CVA, palpatations, mental health, musculoskeletal)? @ -Not applicable EKG interpreted by me (3pts min.). @ -As above X-rays interpreted by me (1pt min.). @ -None done CT interpreted by me (1pt min.). @ -None done U/S interpreted by me (1pt. min.). @ -None done What testing was considered but not performed or refused? (CT, X-rays, U/S, labs)? Why? @ -None What meds were considered but not given or refused? Why? @ -None Did you discuss the management of the patient with other professionals (professionals i.e. Dr., PA, CORPORATE PLANNING MANAGER, lab, RT, psych nurse, rn social services, road engineer, teacher, adult parole officer, rehabilitation case coordinator)? Give summary @ -No Was smoking cessation discussed for >3mins.? @ -No Was critical care preformed (if so, how long)? @ -No Were there social determinants of health that impacted care today? How? (Homelessness, low income, unemployed, alcoholism, drug addiction, transportation, low edu. Level, literacy, decrease access to med. care, care home, rehab)? @ -No Was there de-escalation of care discussed even if they declined (Discuss DNR or withdrawal of care, Hospice)? DNR status @ -No What co-morbidities impacted this encounter? (DM, HTN, Smoking, COPD, CAD, Cancer, CVA, ARF, Chemo, Hep., AIDS, mental health diagnosis, sleep apnea, morbid obesity)? @ -None Was patient admitted / discharged? Hospital course, mention meds given and route, prescriptions, significant lab abnormalities, going to OR and other pertinent info. @ -43-year-old male presenting with chief complaint of laceration to the tip of the left thumb while cutting meat this evening. This is a superficial laceration. His tetanus is updated and wound is repaired using Dermabond. Patient educated on wound care and signs of infection. Discharged. Follow-up with PCP. Report back to ER with any new or worsening symptoms. Discussed return parameters and answered all questions. Patient conveyed verbal understanding and agreed to the plan. I discussed this case in detail with my attending Dr. Jordan Undiagnosed new problem with uncertain prognosis? @ -No Drug Therapy requiring intensive monitoring for toxicity (Heparin, Nitro, Insulin, Cardizem)? @ -No Were any procedures done? @ -Laceration repair Diagnosis/symptom? @ -Laceration Acute, or Chronic, or Acute on Chronic? @ -Acute Uncomplicated (without systemic symptoms) or Complicated (systemic symptoms)? @ -Uncomplicated Side effects of treatment? @ -No Exacerbation, Progression, or Severe Exacerbation? @ -No Poses a threat to life or bodily function? How? (Chest pain, [place], CA, pneumonia, PE, COPD, DKA, ARF, appy, cholecystitis, CVA, Diverticulitis, Homicidal, Suicidal, threat to staff... and all critical care pts) @ -No Disposition Clinical Impression: Laceration Disposition: HOME SELF-CARE Condition: Good Instructions (If sedation given, give patient instructions): Laceration (ED), Skin Adhesive Care (ED) Additional Instructions: Follow-up with PCP. Report back to ER with any new or worsening symptoms. Monitor for signs of infection, including but not limited to redness, swelling, pain, discharge, fever, chills. Keep the wound clean and dry and covered. Avoid fully submerging the wound. Clean with soap and water. Do not apply Peter sporin or other ointment-based products as this will break down the skin adhesive. Is patient prescribed a controlled substance at d/c from ED?: No Referrals: Stefano Cano MD [Primary Care Provider] - 1-2 days Time of Disposition: 23:56
== END 2024-05-07 00:14 | disposition home or self-care (01) ==
LOC: EC 21:25
CPT/HCPCS: 12001; 90715; 99282

== ENCOUNTER → 2024-11-11 | Outpatient (CLI) | payer MEDICARE, OTHER ==
--- NOTE | 2024-11-11 14:07 | FL ---
EXAMINATION TYPE: FL barium swallow DATE OF EXAM: 11/11/2024 2:00 PM COMPARISON: None. CLINICAL INDICATION: Male, 43 years old with history of R13.10 dysphagia, Dysphagia TECHNIQUE: Esophagram was performed per the air contrast technique. The patient swallowed barium and effervescent crystals without difficulty or delay. FINDINGS: Esophageal peristalsis and motility appear to be within normal limits. There is no evidence for filling defect, mass or diverticulum. No hiatal hernia seen. Subsequently single contrast cervical esophagram was performed which fails demonstrate evidence for a spiration penetration or mass. IMPRESSION: Unremarkable study. [facility], , 11/11/2024 2:05 PM
--- NOTE | 2024-11-11 14:11 | CT ---
EXAMINATION TYPE: CT soft tissue neck w con DATE OF EXAM: 11/11/2024 1:42 PM COMPARISON: 09/17/2020. CLINICAL INDICATION: Male, 43 years old with history of R13.10 dysphagia; PHH, difficulty swallowing TECHNIQUE: Standard enhanced CT of the neck. Axial sections with coronal and sagittal reformats were obtained. Contrast used:100ml mL of Isovue 300 with IV Contrast, (None if empty) Oral contrast used: (None if empty) CT DLP: 486.3 mGycm, Automated exposure control for dose reduction was used. FINDINGS: Brain: Visualized portions are grossly unremarkable. Orbits: Unremarkable Sinuses: Grossly unremarkable. Spaces of the neck: Clear and symmetric. The oropharynx is relatively unremarkable without evidence f or mass. Musculoskeletal: No acute osseous pathology. Lymph nodes: Multiple nonenlarged lymph nodes are seen along both anterior chains of the neck. Vascular structures: Visualized major arteries are patent without evidence of aneurysm. Thoracic Inlet/airway: Airway is patent. The lung apices are clear. Soft tissues/Thyroid: Thyroid and remainder of the soft tissues are unremarkable. Other: none. IMPRESSION: No abnormality involving the oropharynx to correlate patient's dysphagia. [facility], , 11/11/2024 2:09 PM
== END | disposition home or self-care (01) ==
LOC: RADCTMAIN 13:13
PROVIDERS: ATTEND Otolaryngology
DX: R13.10 Dysphagia, unspecified (principal)
CPT/HCPCS: 74220; 70491; Q9967